=== PATIENT | female | born 1970 | race Caucasian/White ===

== ENCOUNTER → 2019-06-15 08:52 | Outpatient (BNVA) | payer BC, SELFPAY | PROVIDERS: Visit Provider Nurse Practitioner Family | DX: E07.9 Disorder of thyroid, unspecified (principal) | CPT/HCPCS: 84443 ==

== ENCOUNTER → 2019-09-28 14:21 | Outpatient (BNVA) | payer BC, SELFPAY | PROVIDERS: Visit Provider Nurse Practitioner Family | DX: M25.522 Pain in left elbow (principal); R61 Generalized hyperhidrosis | CPT/HCPCS: 73080; 80053; 82607; 83001; 84146; 84443; 85025; 86140 ==

== ENCOUNTER → 2019-10-08 16:12 | Outpatient (BNVA) | payer BC, SELFPAY | PROVIDERS: Visit Provider Nurse Practitioner Family | DX: R73.09 Other abnormal glucose (principal) | CPT/HCPCS: 83036 ==

== ENCOUNTER → 2020-02-17 15:39 | Outpatient (BNVA) | payer BC, SELFPAY | PROVIDERS: Visit Provider Nurse Practitioner Family | DX: E03.9 Hypothyroidism, unspecified (principal); Z20.828 Contact with and (suspected) exposure to other viral communicable diseases | CPT/HCPCS: 84439; 84443; 84481; 87635 ==

== ENCOUNTER → 2020-07-19 14:25 | Outpatient (BNVA) | payer BC, SELFPAY | PROVIDERS: Visit Provider Nurse Practitioner Family | DX: R53.83 Other fatigue (principal); R73.03 Prediabetes | CPT/HCPCS: 80053; 80061; 82306; 82607; 83036; 84439; 84443; 84481; 85025; 85651; 86038; 86140; 86431 ==

== ENCOUNTER → 2021-03-17 11:03 | Outpatient (BNVA) | payer BC, SELFPAY | PROVIDERS: Visit Provider Nurse Practitioner Family | DX: E03.9 Hypothyroidism, unspecified (principal); R73.03 Prediabetes; E55.9 Vitamin D deficiency, unspecified | CPT/HCPCS: 80053; 80061; 82306; 83036; 84443; 85025 ==

== ENCOUNTER → 2021-05-24 09:18 | Outpatient (BNVA) | payer BC, SELFPAY | PROVIDERS: Visit Provider Podiatrist Foot & Ankle Surgery | DX: M19.072 Primary osteoarthritis, left ankle and foot (principal) | CPT/HCPCS: 73630 ==

== ENCOUNTER → 2022-01-23 08:52 | Outpatient (BNVA) | payer SELFPAY | PROVIDERS: PCP Nurse Practitioner Family; Visit Provider Dermatology | DX: Z01.89 Encounter for other specified special examinations (principal) ==

== ENCOUNTER → 2022-04-18 13:37 | Outpatient (BNVA) | payer BC, SELFPAY | PROVIDERS: PCP Nurse Practitioner Family; Visit Provider Nurse Practitioner Family | DX: R73.03 Prediabetes (principal); E03.9 Hypothyroidism, unspecified; E55.9 Vitamin D deficiency, unspecified | CPT/HCPCS: 80053; 80061; 82306; 83036; 84443; 85025 ==

== ENCOUNTER → 2022-10-09 09:58 | Outpatient (BNVA) | payer BC, SELFPAY | PROVIDERS: PCP Nurse Practitioner Family; Visit Provider Nurse Practitioner Family | DX: E03.9 Hypothyroidism, unspecified (principal) | CPT/HCPCS: 84439; 84443 ==

== ENCOUNTER → 2022-10-12 10:17 | Outpatient (BNVA) | payer BC, SELFPAY | PROVIDERS: PCP Nurse Practitioner Family; Visit Provider Nurse Practitioner Family | DX: J40 Bronchitis, not specified as acute or chronic (principal) | CPT/HCPCS: 71046 ==

== ENCOUNTER 2022-10-19 06:51 | Outpatient (CLI) | payer BC, SELFPAY ==
[2022-10-19] MEDS: iohexol 350 mg/mL 500 mL Btl (per mL) IV (07:18)
--- NOTE | 2022-10-19 07:30 | CT_ITS ---
WS: [id number] CT chest w con* [id number] HISTORY: R91.1 - Solitary pulmonary nodule TECHNIQUE: Axial imaging performed through the thorax. Coronal and sagittal reformats are submitted. All CT scans at [facility] use at least one of these dose optimization techniques: automated exposure control; mA and/or kV adjustment per patient size (includes targeted exams where dose is mat ched to clinical indication); or iterative reconstruction. CONTRAST: Omnipaque 350; 100 mL IV. DLP: 237.69 mGy.cm COMPARISON: Chest radiograph 10/12/2022 Lungs and central airway: Nodules seen on the recent chest radiograph corresponds to an incompletely calcified nodule at the LEFT lung base measuring 10 mm. Consistent with a benign granuloma. No suspic ious mass or nodule. Thin linear atelectasis in the LEFT lower lobe. Pleura: Normal. No pleural effusion. Heart and pericardium: Normal size heart with no pericardial effusion. Mediastinum and bob: No mediastinum or hilar adenopathy. Vessels: Normal size aortic and pulmonary artery. No coronary artery calcifications. Chest wall and lower neck: Mildly enlarged nodular thyroid gland. Thyroid gland extends substernal. Upper abdomen: Pancreatic duct is top normal size at 3 mm. The entire pancreatic head is not included . No adrenal mass. Osseous structures: No destructive process. CT/CT chest w con* [id number] IMPRESSION: 1. Benign granuloma LEFT lower lobe. No suspicious mass or pulmonary nodule. 2. Pancreatic duct is mildly prominent for a patient of this age. The entire p ancreatic head and uncinate process are not included. Suggest additional follow -up of the pancreas. Recommend pancreatic MRI with and without contrast to excl ude neoplasm. 3. Mildly enlarged, substernal heterogeneous thyroid.
== END 2022-10-19 06:52 | disposition home or self-care (01) ==
PROVIDERS: PCP Nurse Practitioner Family; Visit Provider Nurse Practitioner Family
DX: R91.1 Solitary pulmonary nodule (principal); J84.10 Pulmonary fibrosis, unspecified; E04.9 Nontoxic goiter, unspecified
CPT/HCPCS: 71260; Q9967

== ENCOUNTER 2022-11-06 06:56 | Outpatient (CLI) | payer BC, SELFPAY ==
--- NOTE | 2022-11-06 07:15 | MR_ITS ---
WS: [id number] MRI OF THE ABDOMEN WITHOUT AND WITH GADOLINIUM ENHANCEMENT INDICATION: Dilated pancreatic duct COMPARISON: CT chest October 19, 2022 TECHNIQUE: Coronal single shot, axial single shot, axial T2 fat sat, and phase imaging, dynamic 3-D p ost gadolinium imaging, coronal 3-D T1 imaging with fat sat, axial 3-D 5 imaging with fat sat. FINDINGS: No evidence of pancreatic mass or lesion. Minimal prominence of the pancreatic duct. Normal common bile duct. Common bile duct measures 6 mm at the pancreatic head. Normal portal vein and sple fam vein. Normal spleen. Mild diffuse fatty infiltration liver. Mild hepatomegaly. Normal gallbladder. No cholelithiasis. No evidence of choledocholithiasis. Tiny 8 mm hepatic cyst LEF T hepatic lobe. Tiny adenoma LEFT adrenal gland measuring 9 mm. RIGHT renal cyst measuring 15 mm. No hydronephrosis i n either kidney. Normal spleen. Normal GE junction. MR/MR abdomen wo/w con* [id number] IMPRESSION: 1. No evidence of pancreatic head mass or lesion. 2. Normal common bile duct measuring 6 mm. 3. No cholelithiasis. 4. Mild hepatomegaly. Slight diffuse fatty infiltration liver. 5. Incidental simple RIGHT renal cyst measuring 15 mm. 6. Tiny 9 mm LEFT adrenal adenoma. 7. No other suspicious findings.
[2022-11-06] MEDS: gadobenate dimeglumine 20 mL vial IV (11:42)
== END 2022-11-06 06:57 | disposition home or self-care (01) ==
PROVIDERS: PCP Nurse Practitioner Family; Visit Provider Nurse Practitioner Family
DX: R16.0 Hepatomegaly, not elsewhere classified (principal); D35.02 Benign neoplasm of left adrenal gland; N28.1 Cyst of kidney, acquired
CPT/HCPCS: 74183; A9577

== ENCOUNTER → 2023-01-04 11:54 | Outpatient (BNVA) | payer BC, SELFPAY | PROVIDERS: PCP Nurse Practitioner Family; Visit Provider Nurse Practitioner | DX: M25.571 Pain in right ankle and joints of right foot (principal); S82.61XA Displaced fracture of lateral malleolus of right fibula, initial encounter for closed fracture; X58.XXXA Exposure to other specified factors, initial encounter | CPT/HCPCS: 73610 ==

== ENCOUNTER → 2023-02-11 16:13 | Outpatient (BNVA) | payer BC, SELFPAY | PROVIDERS: PCP Nurse Practitioner Family; Visit Provider Family Medicine | DX: R30.0 Dysuria (principal); R39.9 Unspecified symptoms and signs involving the genitourinary system | CPT/HCPCS: 81003 ==

== ENCOUNTER → 2023-07-03 11:30 | Outpatient (BNVA) | payer BC, SELFPAY | PROVIDERS: PCP Nurse Practitioner Family; Visit Provider Nurse Practitioner Family | DX: R73.03 Prediabetes; E03.9 Hypothyroidism, unspecified; E55.9 Vitamin D deficiency, unspecified | CPT/HCPCS: 80053; 80061; 82306; 82607; 83036; 84439; 84443; 85025 ==

== ENCOUNTER 2023-07-18 10:18 | Outpatient (CLI) | payer BC, SELFPAY ==
--- NOTE | 2023-07-18 10:22 | US_ITS ---
WS: [id number] BILATERAL 3D TOMOSYNTHESIS DIGITAL DIAGNOSTIC MAMMOGRAPHY WITH CAD CLINICAL INFORMATION: N63.0 - Unspecified lump in unspecified breast HISTORY: RIGHT breast mass COMPARISON: 2017 TECHNIQUE: Bilateral CC, MLO, and ML views. FINDINGS: Scattered fibroglandular densities bilaterally. Deep to the palpable marker, near the 6 o'clock posit ion mid to posterior depth, is an ovoid spiculated breast mass with a few associated heterogeneous ca lcifications. This measures approximately 2.1 x 2.1 cm suspicious for neoplasm. Ultrasound is pending . Surrounding irregular parenchyma suspicious for parenchymal invasion. Vascular calcifications. LEFT breast is unremarkable and unchanged. ULTRASOUND BREAST RIGHT TECHNIQUE: Ultrasound right breast focused area of concern. CLINICAL INFORMATION: N63.0 - Unspecified lump in unspecified breast FINDINGS: Ultrasound RIGHT breast in the area of concern 6 o'clock position 2 cm from the nipple. There is a de nse hypoechoic shadowing irregular mass suspicious for neoplasm with irregular spiculated margins ivette picious for surrounding parenchymal invasion. Irregular mass measures 2.4 x 2.2 x 2.2 cm. Recommend f urther evaluation with ultrasound-guided biopsy.. No lymphadenopathy in the RIGHT axilla. IMPRESSION: US/US breast RT limited* [id number] BI-RADS: 5-Highly Suggestive of Malignancy FOLLOW UP: US Guided Biopsy Recommended Notified ODALIS Beebe at 07/18/2023 12:05 PM.
--- NOTE | 2023-07-18 10:30 | MM_ITS ---
WS: [id number] BILATERAL 3D TOMOSYNTHESIS DIGITAL DIAGNOSTIC MAMMOGRAPHY WITH CAD CLINICAL INFORMATION: N63.0 - Unspecified lump in unspecified breast HISTORY: RIGHT breast mass COMPARISON: 2017 TECHNIQUE: Bilateral CC, MLO, and ML views. FINDINGS: Scattered fibroglandular densities bilaterally. Deep to the palpable marker, near the 6 o'clock posit ion mid to posterior depth, is an ovoid spiculated breast mass with a few associated heterogeneous ca lcifications. This measures approximately 2.1 x 2.1 cm suspicious for neoplasm. Ultrasound is pending . Surrounding irregular parenchyma suspicious for parenchymal invasion. Vascular calcifications. LEFT breast is unremarkable and unchanged. ULTRASOUND BREAST RIGHT TECHNIQUE: Ultrasound right breast focused area of concern. CLINICAL INFORMATION: N63.0 - Unspecified lump in unspecified breast FINDINGS: Ultrasound RIGHT breast in the area of concern 6 o'clock position 2 cm from the nipple. There is a de nse hypoechoic shadowing irregular mass suspicious for neoplasm with irregular spiculated margins ivette picious for surrounding parenchymal invasion. Irregular mass measures 2.4 x 2.2 x 2.2 cm. Recommend f david evaluation with ultrasound-guided biopsy.. No lymphadenopathy in the RIGHT axilla. IMPRESSION: MM/[place] [id number] BI-RADS: 5-Highly Suggestive of Malignancy FOLLOW UP: US Guided Biopsy Recommended Notified ODALIS Beebe at 07/18/2023 12:05 PM.
== END 2023-07-18 10:19 | disposition home or self-care (01) ==
LOC: RAD 10:18
PROVIDERS: PCP Nurse Practitioner Family; Visit Provider Nurse Practitioner Family
DX: N63.15 Unspecified lump in the right breast, overlapping quadrants (principal)
CPT/HCPCS: 76642; 77062; G0279

== ENCOUNTER 2023-07-24 10:11 | Outpatient (CLI) | payer BC, SELFPAY ==
--- NOTE | 2023-07-24 11:45 | US_ITS ---
WS: [id number] ULTRASOUND-GUIDED RIGHT BREAST BIOPSY CLINICAL INFORMATION: R92.8 - Other abnormal and inconclusive findings on diagn... FINDINGS: The procedure including risks, benefits, and complications were discussed with the patient who agreed to proceed. Using sterile technique patient was prepped and draped in the usual sterile fashion. Aft er 1% lidocaine utilizing real-time ultrasound guidance 6 14-gauge cores were obtained of the RIGHT b reast lesion at the 6 o'clock position 2 cm from the nipple. No immediate complications. Patient defe rred biopsy clip. 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 Maximum tumor focus 1.3 cm. Microcalcifications visualized. Breast prognostic profile is pending. Please see pathology report for results. IMPRESSION: 1. Uncomplicated ultrasound-guided RIGHT breast biopsy. 2. The pathology demonstrates invasive ductal carcinoma. 3. Breast cancer prognostic profile pending. See pathology report for final results US/[place] [id number] BI-RADS: 6-Known Biopsy-Proven Malignancy FOLLOW UP: Surgical Biopsy Recommended Recommend Breast surgery consultation.
[2023-07-29 14:42] LABS: Breast Profile ER,PR,HER2,Ki-6 See Report
== END 2023-07-24 10:12 | disposition home or self-care (01) ==
LOC: RAD 10:12
PROVIDERS: PCP Nurse Practitioner Family; Visit Provider Nurse Practitioner Family
DX: C50.811 Malignant neoplasm of overlapping sites of right female breast (principal)
CPT/HCPCS: 19083; 88305; 88361; 88374

== ENCOUNTER 2023-08-06 07:44 | Oncology outpatient (recurring) (ONCR) | payer BC, SELFPAY ==
[2023-08-06 09:12] LABS: Basophils % 0.4 %; Eosinophils % 1.4 %; Hematocrit 42.6 % (36-47); Lymphocytes # 0.9 10^3/uL (0.8-4.8); Lymphocytes % 33.3 %; Mean Corpuscular Hemoglobin 31.5 pg (27-33); Mean Corpuscular Volume 92.6 fl (85-98); Mean Platelet Volume 9.4 fL (7.4-10.4); Monocytes # 0.3 10^3/uL (0.2-0.9); Monocytes % 10.9 %; Neutrophils # 1.49 10^3/uL (1.8-7.7); Nucleated Red Blood Cells % 0 %; Platelet Count 291 10^3/cmm (157-399); Red Cell Distribution Width 11.7 % (12.1-15.1); White Blood Count 2.76 10^3/uL (3.29-11.43)
[2023-08-06 10:15] LABS: Alanine Aminotransferase 37 U/L (0-33); Albumin Level 4.6 g/dL (3.5-5.2); Alkaline Phosphatase 78 U/L (35-105); Anion Gap 18.3 (5-19); Aspartate Amino Transferase 27 U/L (0-32); Blood Urea Nitrogen 12 mg/dL (6-20); Calcium 9.6 mg/dL (8.5-10.5); Carbon Dioxide 26 mmol/L (22-29); Chloride 101 mmol/L (98-107); Creatinine Clr Calc Pharmacy 94.5388; Globulin 3.2 g/dL (1.3-4.6); Glomerular Filtration Rate 88.6 mL/min (90-130); Glucose 100 mg/dL (65-115); Osmolality Calculated 292 mOsm/kg (285-295); Potassium 4.3 mmol/L (3.5-5.1); Sodium 141 mmol/L (136-145); Total Bilirubin 0.4 mg/dL (0.15-1.2); Total Protein 7.8 g/dL (6.6-8.7)
[2023-08-06 10:25] LABS: Hepatitis A Antibody IgM Non-Reactive (Nonreactive); Hepatitis B Core AB, Total Non-Reactive (Nonreactive); Hepatitis B Surface AB < 3.5 (11.5-1000); Hepatitis B Surface Antigen Non-Reactive (Nonreactive); Hepatitis C Virus Antibody Non-Reactive (Nonreactive)
[2023-08-08 16:58] LABS: LAB Peripheral Smear Sent for Review
== END 2023-08-11 23:59 | disposition home or self-care (01) ==
PROVIDERS: PCP Nurse Practitioner Family; Visit Provider Internal Medicine
DX: C50.911 Malignant neoplasm of unspecified site of right female breast (principal); Z53.9 Procedure and treatment not carried out, unspecified reason
CPT/HCPCS: 36415; 80053; 80503; 85025; 86705; 86706; 86709; 86803; 87340

== ENCOUNTER 2023-08-20 08:38 | Day surgery (SDC) | payer BC, SELFPAY ==
[2023-08-20] VITALS (12 sets, daily range): BP systolic 106–143; BP diastolic 71–87; PULSE 58–87; RESP 12–21; TEMP 36.2–36.6; O2SAT 94–98; BMI 29.7
--- NOTE | 2023-08-20 08:48 | XRR_ITS ---
PROCEDURE INFORMATION: Exam: XR Chest Exam date and time: 08/20/2023 10:40 AM Age: 52 years old Clinical indication: Device placement; Other: Mediport placement; Prior surgery; Surgery date: Post-operative (0-2 days); Additional info: Postop mediport placement TECHNIQUE: Imaging protocol: Radiologic exam of the chest. Views: 1 view. COMPARISON: CT chest w con* [id number] 10/19/2022 7:25 AM FINDINGS: Tubes, catheters and devices: Port-A-Cath overlying left chest wall with catheter tip projecting over the expected region of the right atrium. Lungs: No focal lung consolidation. Pleural spaces: No pleural effusion. No pneumothorax. Heart/Mediastinum: Unremarkable. No cardiomegaly. Bones/joints: No acute bony abnormality. XR/XR chest 1V portable [id number] IMPRESSION: 1. No focal lung consolidation. 2. Port-A-Cath overlying left chest wall with catheter tip projecting over the expected region of the right atrium.
--- NOTE | 2023-08-20 08:48 | SC_ITS ---
WS: [id number] C-ARM RADIOGRAPHS CHEST; 2 IMAGES HISTORY: Mediport placement COMPARISON: None available. Intraoperative imaging during Mediport placement. Tip of the Mediport is not visualized due to the te chnique. This will be better evaluated on follow-up radiograph. IMPRESSION: Intraoperative imaging during Mediport placement the LEFT subclavian vein. Tip of the Mediport is not included.
[2023-08-20] MEDS: sodium chloride 0.9% 1,000 ML 30 ML IV (09:09)
--- NOTE | 2023-08-20 09:54 | W.PM.OPSUD ---
Surgery/Procedure H&P Update DATE OF PROCEDURE: August 20, 2023 DATE H&P PERFORMED: 08/12/23 H&P UPDATE INFORMATION: I have reviewed H&P completed within last 30 days, I have examined patient prior to procedure and No changes to prior documentation PLANNED PROCEDURE: Operation Date: 08/20/23 10:55 Proposed Procedures p Portacath Placement(Not Applicable) - Cody Barger DO
--- NOTE | 2023-08-20 10:35 | ANES.PREANE2 ---
Pre-Anesthetic Assessment Height/Weight: Height 1.6 m Weight 76.204 kg Temp Pulse Resp BP Pulse Ox O2 Del Method 97.8 F 65 17 136/81 97 Room Air 08/20/23 08:59 08/20/23 08:59 08/20/23 08:59 08/20/23 08:59 08/20/23 08:59 08/20/23 09:00 Operation Date: 08/20/23 10:55 Proposed Procedures p Portacath Placement(Not Applicable) - Cody Barger DO Familial anesthetic complications: none Was Beta Sean taken within 24 hours: N/A Was Clonidine taken within 24 hours: N/A Last intake: Intake Last Liquid Date 08/19/23 Last Liquid Time 19:00 Last Solid Date 08/19/23 Last Solid Time 19:00 Social No alcohol and No tobacco Exam alert, oriented x 3, clear to auscultation bilaterally and regular rate & rhythm Airway Submandibular: within normal limits Cervical ROM: within normal limits Mallampati: Class II Dentition: full Metabolic Thyroid Disease Anesthetic Plan ASA status: 2 Anesthesia: MAC Medications/Allergies Home Medications Medication Instructions Recorded Confirmed Last Taken Type valacyclovir 1 gram tablet 2,000 mg (2 x 1 gram) PO BID PRN 06/06/23 08/19/23 Unknown Rx (Valtrex) cold sores 1 day #4 tabs levothyroxine 25 mcg tablet 25 mcg PO DAILY #90 tabs 07/07/23 08/20/23 08/20/23 Rx prochlorperazine maleate 10 mg 10 mg PO Q4H PRN Mild Nausea #30 08/06/23 08/19/23 Unknown Rx tablet (Compazine) tabs zolpidem 5 mg tablet (Ambien) 5 mg PO .qhs #30 tabs 08/06/23 08/19/23 08/18/23 Rx carboplatin 10 mg/mL intravenous 450 mg (45 mL) IV DAILY 6 doses 08/09/23 08/19/23 Unknown Rx solution acetaminophen 325 mg tablet 325 mg PO QID PRN Pain 08/19/23 08/19/23 08/12/23 History docetaxel 20 mg/mL (1 mL) 135 mg IV DAILY 08/19/23 08/19/23 Unknown History intravenous solution Allergies Allergy/AdvReac Type Severity Reaction Status Date / Time No Known Allergies Allergy Verified 08/19/23 14:43 Current Medications Generic Name Dose Route Start Last Admin Trade Name Maria G PRN Reason Stop Dose Admin Sodium Chloride 1,000 mls @ 30 mls/hr 08/20/23 09:00 08/20/23 09:09 Sodium Chloride 0.9% IV 08/21/23 08:59 30 mls/hr .Q24H OLEG Administration PFSH Anesthesia Medical History Prediabetes Hypothyroid Surgical History H/O: hysterectomy Family History Father Aneurysm AAA Social History Smoking and tobacco/nicotine status: former use of tobacco/nicotine Quit status (tobacco/nicotine): has quit using Year quit tobacco: 2014 Former quit date comment: smoked 25 yrs; vaped x 5 years recently quit Second hand smoke exposure: No Alcohol intake: never Substance/Drug Use: never Caregiver/support person: Yes (spouse) Lives independently: Yes Household members: spouse Housing: House Marital status: service: No Current occupational status: employed Current gender identity: Female Special willam needs: No Agree to transfusion: Yes Data Anesthesia Cardiac Studies: No Data to Display
[2023-08-20] MEDS: ceFAZolin 2,000 MG in sodium chloride 0.9% (plus) 50 ML 100 MG IV (10:52)
[2023-08-20] MEDS: lidocaine-epi 1% PF 1:200,000 30 mL SDV INJECTION (11:02)
[2023-08-20] MEDS: heparin, porcine 1,000 unit/mL INJ 10 mL 10000 UNIT IRRIGATION ×2 (11:14→12:30)
--- NOTE | 2023-08-20 11:24 | PM.OP ---
Operative Report Date of procedure: August 20, 2023 Pre-op diagnosis: Breast cancer Post-op diagnosis: same Procedure done: Mediport placement Implants: PowerPort Surgeon: Cody Barger DO Anesthesia: MAC and Local Estimated blood loss (mL): 5 Complications: None apparent Brief History: This very pleasant 52-year-old female who was diagnosed with breast cancer. Oncology requested Mediport placement for chemotherapy. The risks and benefits were explained and documented. Procedure: They put another order I will do right now things the patient was taken to the operating room and placed supine on the operating room table. All bony prominences were padded. She was given IV sedation and monitored throughout the case by the anesthesia personnel. SCDs were placed and turned on. The arms were tucked to the side. Patient received Ancef 2 g preoperatively IV. The bilateral chest wall was prepped and draped in usual sterile fashion using chlorhexidine base prep. Sterile drapes were applied. We did procedure pause prior to beginning. An 18 gauge needle was placed in the left subclavian vein. Dark, nonpulsatile blood was aspirated. A guidewire was placed through the needle centrally toward the atrial/vena caval junction. Fluoroscopy visualized good placement. The needle was removed and the guidewire was clipped to the drape with a hemostat. Further local anesthetic was infiltrated in the soft tissues of the left chest wall and a #15 blade was used to make a horizontal skin incision. A subcutaneous Mediport pocket was created using Bovie cautery, dissecting down through the skin and subcutaneous tissues. Meticulous hemostasis was achieved. The Mediport was sutured in position using 3-0 vicryl suture x2 stitches. A #15 blade was used to make a small skin yobani around the guidewire insertion area. The Mediport tubing was tunneled through the subcutaneous tissues up to the needle insertion location. A dilator with a peel-away sheath was placed over the guidewire and placed centrally. After measuring the Mediport tubing was cut to length so that the tip would end at the atrial/vena caval junction. The inner cannula and the guidewire were removed, leaving the dilator sheath in place. The Mediport was flushed. The tip of the catheter was inserted through the peel-away sheath and the peel-away sheath removed in the standard fashion. The Mediport was accessed with a straight Freeman needle and dark, nonpulsatile blood was aspirated and flushed using heparinized saline to hep-lock the Mediport. Final fluoroscopy visualization showed no kink in the catheter and the tip of the Mediport tubing near the atrial/vena caval junction. No obvious pneumothorax. Both skin incisions were thoroughly irrigated and suctioned dry. Meticulous hemostasis noted. The dermis was approximated with 3-0 Vicryl in an interrupted fashion. Skin was closed with Dermabond. Patient was awakened from anesthesia and transferred via her cart to the recovery room in stable condition. All needle, sponge, and instrument counts were correct per the operating personnel x2 counts.
--- NOTE | 2023-08-20 11:51 | PC.NURSE ---
Returned to OR
--- NOTE | 2023-08-20 11:52 | PC.NURSE ---
Dr. Barger reviewed CXR art time of xray
--- NOTE | 2023-08-20 12:48 | XRR_ITS ---
PROCEDURE INFORMATION: Exam: XR Chest Exam date and time: 08/20/2023 11:51 AM Age: 52 years old Clinical indication: Device placement; Other: Mediport revision; Additional info: Postop mediport revision TECHNIQUE: Imaging protocol: Radiologic exam of the chest. Views: 1 view. COMPARISON: CR XR chest 1V portable [id number] 08/20/2023 10:40 AM FINDINGS: Tubes, catheters and devices: Redemonstration of a left-sided Port-A-Cath tip now projects over the expected region of the superior vena cava. Lungs: No focal lung consolidation. Pleural spaces: No pleural effusion. No pneumothorax. Heart/Mediastinum: Unremarkable. No cardiomegaly. Bones/joints: No acute bony abnormality. XR/XR chest 1V portable [id number] IMPRESSION: Redemonstration of a left-sided Port-A-Cath tip now projects over the expected region of the superior vena cava.
--- NOTE | 2023-08-20 13:01 | PC.NURSE ---
CXR reviewed by Dr. Barger. updated on patient c/o some discomfort on inspiration. States it is sore.
[2023-08-20] MEDS: HYDROcodone-acetaminophen 7.5-325 mg Tablet 1 TAB PO (13:25)
--- NOTE | 2023-08-20 14:59 | ANE.PACU2 ---
Inpatient post-anesthesia follow up: Airway intact: Yes Vital signs: Temperature 97.5 F Pulse Rate 66 Respiratory Rate 17 Blood Pressure 143/79 Pulse Oximetry 98 Oxygen Delivery Me thod Room Air Oxygen Flow Rate Fraction of Inspir ed Oxygen Hydration adequate: Yes Nausea and vomiting: No Pain level: 2 Mental status: Baseline
== END 2023-08-20 13:37 | disposition home or self-care (01) ==
PROVIDERS: PCP Nurse Practitioner Family; Visit Provider Surgery
PROC: (CPT 36561; principal; 2023-08-20 10:45)
DX: C50.911 Malignant neoplasm of unspecified site of right female breast (principal); R73.03 Prediabetes; E03.9 Hypothyroidism, unspecified; Z87.891 Personal history of nicotine dependence
CPT/HCPCS: 36561; 71045; 77001; C1788; J0690; J1644; J2250; J2704; J3010; J7030

== ENCOUNTER 2023-08-26 08:59 | Outpatient (CLI) | payer BC, SELFPAY ==
--- NOTE | 2023-08-26 10:00 | CT_ITS ---
WS: [id number] CT CHEST, ABDOMEN, AND PELVIS TECHNIQUE: Contrast-enhanced CT of the chest, abdomen, and pelvis with coronal and sagittal reformatt ed images. CLINICAL INFORMATION: initaial staging COMPARISON: CT chest 10/19/2022 DLP: 855.[address] scans at [facility] use at least one of these dose optimization techniques: automated e xposure control; mA and/or kV adjustment per patient size (includes targeted exams where dose is matc hed to clinical indication); or iterative reconstruction. CT CHEST: Spiculated large heterogeneous mass in the RIGHT breast measuring 2.8 x 2.5 cm corresponding to the r ecently biopsied lesion. Suspicious enhancing lymph node in the RIGHT axilla measuring 11 mm suspicio us for metastatic disease. Both lungs are well aerated. No acute pulmonary infiltrates. No focal pneumonia or pleural fluid. Alexander cified granuloma LEFT lower lobe. Subsegmental atelectasis in the lung bases. Heterogeneous enlarged multinodular thyroid likely due to thyroid goiter with a small amount of substernal extension. This c an be followed up with ultrasound thyroid. No mediastinal or hilar lymphadenopathy. Normal caliber th oracic aorta. Normal thoracic spine. CT ABDOMEN AND PELVIS: Diffuse fatty infiltration of the liver. Normal gallbladder. Normal portal vein and splenic vein. Mil d prominence of the pancreatic duct is unchanged since the prior MRI. Stable LEFT adrenal adenoma. No rmal GE junction. Normal spleen. Celiac and SMA are patent. Normal caliber abdominal aorta. Sigmoid d iverticulosis. No evidence of acute diverticulitis. Tiny fat-containing umbilical hernia. Normal renal parenchymal enhancement. No hydronephrosis. No per iaortic or pelvic lymphadenopathy. No inguinal lymphadenopathy. Normal lumbar spine. Prior hysterectomy. IMPRESSION: 1. No evidence of metastatic disease in the chest abdomen or pelvis. 2. Prior hysterectomy. 3. Spiculated RIGHT breast lesion corresponding to the recently biopsied neoplasm. 4. Suspicious enhancing lymph node in the RIGHT axilla suspicious for lymph node metastasis. This ca n be further evaluated with ultrasound RIGHT axilla and biopsy.
[2023-08-26] MEDS: iohexol 350 mg/mL 500 mL Btl (per mL) PO (10:12)
== END 2023-08-26 09:00 | disposition home or self-care (01) ==
LOC: RAD 09:00
PROVIDERS: PCP Nurse Practitioner Family; Visit Provider Internal Medicine
DX: C50.911 Malignant neoplasm of unspecified site of right female breast (principal)
CPT/HCPCS: 71260; 74177; Q9967

== ENCOUNTER 2023-09-11 09:43 | Outpatient (CLI) | payer BC, SELFPAY ==
--- NOTE | 2023-09-11 09:56 | USCV_ITS ---
August Age: 53 Gender: F : 1970 Exam Date: 09/11/2023 10:12 Ordering Phys: Radha Saucedo MD Technologist: CT Exam Location: [facility] [place]: chemo BP: 121 / 85 HR: 70 Rhythm: Sinus Technical Quality: Adequate MEASUREMENTS (Male / Female) Normal Values 2D ECHO LVOT Diameter 2.0 cm LV Ejection Fraction MOD 2C 66.9 % LV Ejection Fraction 2C AL 67.9 % LA Diameter 3.2 cm RA Systolic Volume 4C AL 19.3 ml RA Systolic Volume 4C MOD 19.0 ml LA Sys Volume AL 35.3 cm cubed LA Sys Volume Index AL 18.7 cm cubed/m squared Aorta at Sinotubular Diameter 2.9 cm IVC Diameter 1.5 cm M-MODE LA Ao Ratio MM 1.5 AV Cusp Separation MM 1.6 cm DOPPLER AV Peak Velocity 116.0 cm/s LVOT Peak Velocity 89.0 cm/s AV Area Cont Eq vti 2.7 cm squared AV Area Cont Eq pk 2.5 cm squared MV Peak Velocity 79.0 cm/s MV Area PHT 3.2 cm squared Mitral E to A Ratio 0.9 TV Peak Velocity 102.0 cm/s TR Peak Velocity 104.0 cm/s TR Peak Gradient 4.3 mmHg TV Peak E Velocity 75.0 cm/s Right Atrial Pressure 3.0 mmHg Pulmonary Artery Systolic Pressu 7.3 mmHg PV Peak Velocity 82.0 cm/s FINDINGS Left Ventricle Normal left ventricular size and systolic function, EF 68%. No gross wall motion abnormalities.Grade I/IV diastolic dysfunction (abnormal relaxation filling pattern), normal to mildly elevated filling pressures. Right Ventricle The right ventricle is normal in size and function. Right Atrium The right atrium is normal in size. Left Atrium The left atrium is normal in size. Mitral Valve No gross abnormalities noted Aortic Valve No gross abnormalities noted Tricuspid Valve Mild tricuspid valve regurgitation. Possibly normal resting pulmonary artery peak systolic pressure. Pulmonic Valve No gross abnormalities noted Pericardium Normal pericardium without effusion. Aorta Normal ascending aorta dimension. IVC Normal inferior vena cava. CONCLUSIONS Normal left ventricular size and systolic function, EF 68%. No gross wall motion abnormalities.Grade I/IV diastolic dysfunction (abnormal relaxation filling pattern), normal to mildly elevated filling pressures. Mild tricuspid valve regurgitation. Possibly normal resting pulmonary artery peak systolic pressure. Normal cardiac chamber sizes. No intracardiac masses No pericardial effusion. No similar previous studies are available for comparison Dr Yvonne England MD [facility] (Electronically Signed) Final Date: 11 Sep 2023 21:53 S
--- NOTE | 2023-09-11 14:45 | US_ITS ---
WS: [id number] ULTRASOUND GUIDED BIOPSY RIGHT AXILLARY LYMPH NODE. HISTORY: infiltrating ductal carcinoma of right breast, abnormal lymph node seen on CT. Procedure, risks, and complications are explained to the patient. Consent was obtained. Skin is clean sed with ChloraPrep and anesthetized with 1% buffered lidocaine. Core biopsies performed with an 18-gauge achieve needle. Multiple biopsies were performed and placed in formalin. No complications were encountered. Patient refused biopsy clip. US/US bx lymph breast/ax [id number] IMPRESSION: 1. Uncomplicated biopsy of an abnormal lymph node in the RIGHT axilla. 2. No biopsy clip placed in the lymph node at the request of the patient. Pathology: Findings consistent with metastatic breast carcinoma. Please review the entire report from pathology. Breast cancer prognostic profile will be perf ormed and submitted separately on this lymph node sampled. Recommendation: Follow-up with oncology.
[2023-09-17 13:10] LABS: Breast Profile ER,PR,HER2,Ki-6 See Report
== END 2023-09-11 09:44 | disposition home or self-care (01) ==
LOC: RAD 09:44
PROVIDERS: PCP Nurse Practitioner Family; Visit Provider Internal Medicine Hematology & Oncology
DX: C50.911 Malignant neoplasm of unspecified site of right female breast (principal)
CPT/HCPCS: 38505; 76942; 88305; 88361; 88374; 93306

== ENCOUNTER 2023-10-07 09:42 | Emergency (ER) | payer BC, SELFPAY ==
[2023-10-07 10:13] VITALS: BP 106/78; PULSE 104; RESP 18; TEMP 36.7; O2SAT 98
--- NOTE | 2023-10-07 10:20 | ED_ITS ---
HPI - Abdominal Pain 2 General: Chief Complaint: Abdominal Pain Stated Complaint: abd pain Time Seen by Provider: 10/07/23 10:19 Source: patient Mode of arrival: ambulatory Limitations: no limitations History of Present Illness: Patient is a 53-year-old female who presents to ED today along with her for multiple complaints that she feels might be related to her recent chemotherapy. Patient has been diagnosed with an invasive ductal carcinoma and started chemotherapy last Saturday with TCHP (Docetaxel/CARBOplatin + Pertuz + Trastuz [Phesgo]). She states about 2 days following the treatment she began feeling ill and complains of diffuse abdominal pain feeling like the inside of her abdomen is pulsating . She has had nausea, vomiting, diarrhea. She is also complaining of some chest heaviness that she feels might be secondary to acid reflux. She has had no appetite. No fevers. Complains of body aches/joint pains. MD elicited complaint: abdominal pain Pertinent past history: other (breast CA) Severity: severe Radiation: none Migration to: no migration Exacerbating factors: eating Relieving factors: nothing Context: other (recent chemotherapy treatment ) Associated Symptoms: Reports diarrhea, nausea and vomiting; Denies chills, dysuria, fever(s), hematochezia, hematemesis, melena and syncope Related Data: Patient : No Review of Systems 2 Const: Reports: body aches, fatigue and malaise; Denies: fever(s) or chills Eyes: Denies: change in vision, blurry vision, photophobia, floaters or seeing flashes ENMT: Denies: throat pain, odynophagia, nasal discharge, nasal congestion or sinus pain Card: Reports: chest pain; Denies: palpitations, irregular heart rhythm, edema, swelling of feet/ankles, lightheadedness, syncope, pre-syncope, dyspnea on exertion, orthopnea, leg pain with exertion or acrocyanosis Resp: Denies: dyspnea, productive cough, non-productive cough, wheezing, pain on inspiration, hemoptysis or chest congestion GI: Reports: abdominal pain, nausea, vomiting and diarrhea; Denies: hematemesis, hematochezia or melena : Denies: flank pain, difficulty voiding, dysuria, urinary frequency, urinary urgency or urinary hesitancy Musc: Reports: joint pain (diffuse); Denies: neck pain, back pain, extremity pain or extremity swelling Skin/Breast: Denies: rash Neuro: Denies: headache(s), numbness in extremities, weakness in extremities, sensory changes or dizziness PFSH ED 2 PFSH: Medical History Prediabetes Hypothyroid Surgical History H/O: hysterectomy Family History Father Aneurysm AAA Social History Smoking and tobacco/nicotine status: never used tobacco/nicotine Quit status (tobacco/nicotine): has quit using Year quit tobacco: 2014 Former quit date comment: smoked 25 yrs; vaped x 5 years recently quit Second hand smoke exposure: No Alcohol intake: never Substance/Drug Use: never Caregiver/support person: Yes (spouse) Lives independently: Yes Household members: spouse Housing: House Marital status: service: No Current occupational status: employed Current gender identity: Female Special willam needs: No Agree to transfusion: Yes Physical Exam 2 Const: COMMON NORMALS: no acute distress, average body habitus, patient oriented x3, no limitations, healthy appearing, alert and well nourished G ENERAL APPEARANCE: cooperative ORIENTATION/CONSCIOUSNESS: Yes awake, Yes oriented to person, Yes oriented to place and Yes oriented to time HENMT: COMMON NORMALS: normocephalic and atraumatic HEAD & SCALP: normal to inspection, normocephalic and atraumatic MOUTH: Normal oral and palatal mucosa present and lip normal THROAT: posterior oropharynx normal Eye: COMMON NORMALS: no scleral icterus GENERAL EYE: appearance normal, both eyes and all related structures Neck/C-Spine: COMMON NORMALS: full ROM, no lymphadenopathy, supple and no meningeal signs Chest: COMMONS NORMALS: normal inspection of the chest Resp: COMMON NORMALS: normal respiratory effort and clear to auscultation bilaterally AUSCULTATION: clear to auscultation bilaterally Cardio: COMMON NORMALS: regular rate and regular rhythm RATE: regular rate RHYTHM: regular rhythm GI: COMMON NORMALS: Normal to inspection, nondistended, normoactive bowel sounds present, Soft to palpation, No hepatosplenomegaly present and no masses INSPECTION: Yes normal to inspection AUSCULTATION: Yes normoactive bowel sounds PALPATION: Yes Soft to palpation, Yes Tenderness to palpation present (GI) (diffusely), No Guarding due to palpation present (GI), No Rigid due to palpation and Yes No hepatosplenomegaly present : COMMON NORMALS: Yes no CVA tenderness BLADDER/KIDNEY EXAM: Yes no CVA tenderness Back/Pelvis: COMMON NORMALS: no CVA tenderness and thoracic and lumbar spine normal to inspection Extremity: COMMON NORMALS: normal to inspection GENERAL: Yes normal exam except as noted Neuro: GIRISH COMA SCALE: document GCS findings Girish coma scale eye opening: Spontaneous Girish coma scale verbal response: Orientated Ione coma scale motor response: Obey commands Ione coma scale total score: 15 C OMMON NORMALS: patient oriented x3, moves all extremities, no focal motor deficits and no sensory deficits noted SENSORIUM/ORIENTATION: Yes alert, Yes oriented to person, Yes oriented to place and Yes oriented to time MENINGEAL SIGNS: Yes no meningeal signs Skin: COMMON NORMALS: no rashes or lesions noted GENERAL SKIN EXAM: no rashes or lesions noted Course 2 Consultations: Consultation #1: Dr. Duarte-recommends blood culture, respiratory panel, Zarxio, and discharge with Levaquin Vital Signs: Vital signs: Vital Signs Temperature 98.1 F 10/07/23 10:13 Pulse Rate 87 10/07/23 12:37 Respiratory Rate 18 10/07/23 10:13 Blood Pressure 123/82 10/07/23 12:37 Pulse Oximetry 97 10/07/23 12:37 Oxygen Delivery Me thod Room Air 10/07/23 12:37 MDM - Abdominal Pain Medical Decision Making Patient is a nice 53-year-old female here for complaints of nausea, vomiting, diarrhea, abdominal pain, joint pains following her first chemotherapy approximately 6 days ago. Patient's vital signs are stable. Her CBC revealing thrombocytopenia and severe neutropenia at 0.82. Chemistry overall is unremarkable. Her UA is unremarkable. CXR is normal. CT scan showing no acute findings. She is not febrile. Spoke to my attending physician Dr. Pulido who recommends hospitalist consult. I did speak to Dr. Duarte who recommended adding a blood culture, respiratory panel, one-time dose of Zarxio, and placing patient on Levaquin 750 mg x 7 days. Did not feel she required hospitalization. Recommend she follow-up with her oncology team this week. Return to ED precautions given. Will give her some pain medications to help with her abdominal discomfort if needed. Lab Data 10/07/23 11:07 10/07/23 11:07 Labs/Radiology: Radiology Impressions Abdomen/Pelvis CT 10/07/23 10:28 IMPRESSION: No acute findings. ADDENDUM: 10/07/23 1138 A 6 mm low-attenuation lesion in the left hepatic lobe is unchanged from prior study. Chest X-Ray 10/07/23 10:28 IMPRESSION: No acute findings. Laboratory Results WBC 3.36 10^3/uL (3.29-11.43) 10/07/23 11:07 RBC 4.50 10^6/uL (3.85-5.65) 10/07/23 11:07 Hgb 14.20 g/dL (11.27-16.99) 10/07/23 11:07 Hct 41.7 % (36-47) 10/07/23 11:07 MCV 92.7 fl (85-98) 10/07/23 11:07 MCH 31.6 pg (27-33) 10/07/23 11:07 MCHC 34.1 g/dL (30-55) 10/07/23 11:07 RDW 12.1 % (12.1-15.1) 10/07/23 11:07 Plt Count 133 10^3/cmm (157-399) L 10/07/23 11:07 MPV 11.1 fL (7.4-10.4) H 10/07/23 11:07 Neut % (Auto) 24.4 % 10/07/23 11:07 Lymph % (Auto) 49.1 % 10/07/23 11:07 [place] % (Auto) 22.9 % 10/07/23 11:07 Eos % (Auto) 1.2 % 10/07/23 11:07 Baso % (Auto) 1.5 % 10/07/23 11:07 Neut # (Auto) 0.82 10^3/uL (1.8-7.7) L* 10/07/23 11:07 Lymph # (Auto) 1.7 10^3/uL (0.8-4.8) 10/07/23 11:07 [place] # (Auto) 0.8 10^3/uL (0.2-0.9) 10/07/23 11:07 Eos # (Auto) 0.0 10^3/uL (0.0-0.8) 10/07/23 11:07 Baso # (Auto) 0.1 10^3/uL (0.0-0.1) 10/07/23 11:07 Nucleated RBC % (auto) 0 % 10/07/23 11:07 Nucleated RBCs # 0.0 /100WBC 10/07/23 11:07 Sodium 135 mmol/L (136-145) L 10/07/23 11:07 Potassium 4.2 mmol/L (3.5-5.1) 10/07/23 11:07 Chloride 98 mmol/L (98-107) 10/07/23 11:07 Carbon Dioxide 24 mmol/L (22-29) 10/07/23 11:07 Anion Gap 17.2 (5-19) 10/07/23 11:07 BUN 10 mg/dL (6-20) 10/07/23 11:07 Creatinine 0.6 mg/dL (0.5-0.9) 10/07/23 11:07 GFR Calculation 105.4 mL/min (90-130) 10/07/23 11:07 Glucose 114 mg/dL (65-115) 10/07/23 11:07 Calculated Osmolality 280 mOsm/kg (285-295) L 10/07/23 11:07 Calcium 8.6 mg/dL (8.5-10.5) 10/07/23 11:07 Total Bilirubin 0.5 mg/dL (0.15-1.2) 10/07/23 11:07 AST 25 U/L (0-32) 10/07/23 11:07 ALT 48 U/L (0-33) H 10/07/23 11:07 Alkaline Phosphatase 93 U/L (35-105) 10/07/23 11:07 Troponin T Baseline < 6 ng/L (0-10) 10/07/23 11:07 Total Protein 7.2 g/dL (6.6-8.7) 10/07/23 11:07 Albumin 4.2 g/dL (3.5-5.2) 10/07/23 11:07 Globulin 3.0 g/dL (1.3-4.6) 10/07/23 11:07 Lipase 21 U/L (13-60) 10/07/23 11:07 Urine Color Yellow (Yellow) 10/07/23 12:00 Urine Appearance Clear (CLEAR) 10/07/23 12:00 Urine pH 8 (5-7) H 10/07/23 12:00 Ur Specific [place] 1.005 (1.005-1.030) 10/07/23 12:00 Urine Protein Trace (Negative) 10/07/23 12:00 Urine Glucose (UA) Norm (Normal) 10/07/23 12:00 Urine Ketones Negative (Negative) 10/07/23 12:00 Urine Blood Neg (Negative) 10/07/23 12:00 Urine Nitrate Negative (Negative) 10/07/23 12:00 Urine Bilirubin Neg (Negative) 10/07/23 12:00 Prot Sulfosalicylic Acd Positive (Negative) 10/07/23 12:00 Urine Urobilinogen Norm mg/dL (Negative) 10/07/23 12:00 Ur Leukocyte Esterase Negative (Negative) 10/07/23 12:00 Urine RBC None /hpf (0-2) 10/07/23 12:00 Urine WBC Rare /hpf (0-5) 10/07/23 12:00 Ur Squamous Epith Cells 0-4 /hpf (0-5) H 10/07/23 12:00 Amorphous Sediment Not Reportable 10/07/23 12:00 Urine Bacteria Trace /hpf (NONE) 10/07/23 12:00 All radiology interpretation(s) finalized by discharge Discharge Plan Discharge Patient Disposition: Home Clinical Impression: Chemotherapy-induced neutropenia, Chemotherapy-induced thrombocytopenia Condition: Stable Prescriptions: New levofloxacin 750 mg tablet 750 mg PO DAILY 7 Days Qty: 7 0RF hydrocodone-acetaminophen 5-325 mg tablet 1 tab PO Q6H PRN (Reason: pain) Qty: 14 0RF No Action Compazine 10 mg tablet 10 mg PO Q4H PRN (Reason: Mild Nausea) Qty: 30 3RF levothyroxine 25 mcg tablet 25 mcg PO DAILY Qty: 90 1RF carboplatin 10 mg/mL solution 450 mg IV DAILY Rx Instructions: Take on day 1 of a 21 day cycle, for 6 cycles. AUC 6 ondansetron HCl 4 mg tablet 4 mg PO QID PRN (Reason: Nausea) Phesgo 1,200 mg-600mg- 30,000 unit/15mL solution 15 ml SUBCUT DIRECTED Ambien 5 mg tablet 5 mg PO BEDTIME acetaminophen 325 mg Tablet 325 mg PO QID PRN (Reason: Pain) Hold Instructions: Resume on 08/22/23. docetaxel 20 mg/mL (1 mL) solution 135 mg IV DAILY Rx Instructions: take on day one of a 21 day cycle. For 6 cycles. Discharge Orders: Discharge ED (Routine); Ordered 10/07/23 Ordered By: Latasha Napoles Referrals: Dana Goel FNP [Primary Care Provider] - Patient Instructions: Neutropenia (ED), Chemo Induced Nausea and Vomiting (ED), Thrombocytopenia Activity Restrictions/Additional Instructions: As we discussed your neutrophil count here was very low. We are placing you on prophylactic antibiotics at this time. You need to quarantine at home and avoid other individuals to keep yourself from getting sick. As we discussed I would like you to follow-up with oncology this week for re-evaluation. You may use the pain medications given to you as needed for your abdominal pain. Please take with a stool softener to avoid constipation. You need to return to the emergency department for any documented fevers of 100.4 or greater. You may also return to the emergency department for worsening or uncontrollable pain, intractable vomiting or diarrhea, generally feeling worse or unwell, or any other concerns you may have. I hope you begin to feel better soon. Coding Level of Care Code ED Network Security Engineer for Sandi Najera
--- NOTE | 2023-10-07 10:22 | ECG_ITS ---
[facility] Test Date: 2023-10-07 Pat Name: Brenda Rico Department: Room: Gender: Female Manufacturing Analyst: : 1970 Requested By: Latasha Napoles Order Number: [id number] Mell MD: Yvonen England M.D. Measurements Intervals [place] Rate: 84 P: 68 NV: 143 QRS: 17 QRSD: 72 T: 48 QT: 353 QTc: 419 Interpretive Statements SINUS RHYTHM POSSIBLE LEFT ATRIAL ENLARGEMENT [-0.1mV P-WAVE IN V1/V2] INTERPRETATION BASED ON A DEFAULT AGE OF 40 YEARS No previous ECG available for comparison Electronically Signed On 10-07-2023 17:29:00 CDT by Yvonne England M.D. [email or web address]
--- NOTE | 2023-10-07 10:28 | XRR_ITS ---
PROCEDURE INFORMATION: Exam: XR Chest Exam date and time: 10/07/2023 10:31 AM Age: 53 years old Clinical indication: Pain; Chest pressure; Prior surgery; Surgery date: 1-6 months; Surgery type: Port; Additional info: Chest pain TECHNIQUE: Imaging protocol: Radiologic exam of the chest. Views: 1 view. COMPARISON: CT chest abdpel w/*[id number] 08/26/2023 10:22 AM FINDINGS: Tubes, catheters and devices: A left chest port terminates in the mid SVC. Lungs: A couple calcified granulomas noted in the left lung. No consolidation. Pleural spaces: Unremarkable. No pleural effusion. No pneumothorax. Heart/Mediastinum: Unremarkable. No cardiomegaly. Bones/joints: Unremarkable. XR/XR chest 1V portable [id number] IMPRESSION: No acute findings.
--- NOTE | 2023-10-07 10:28 | CTR_ITS ---
PROCEDURE INFORMATION: Exam: CT Abdomen And Pelvis With Contrast Exam date and time: 10/07/2023 11:15 AM Age: 53 years old Clinical indication: Abdominal pain; Epigastric; Prior surgery; Surgery date: 6+ months; Surgery type: Hyst, port; Patient HX: Breast cancer; Additional info: Abdominal pain, no appetite, vomiting, diarrhea, recent chemotherapy treatment TECHNIQUE: Imaging protocol: Computed tomography of the abdomen and pelvis with contrast. Radiation optimization: All CT scans at this facility use at least one of these dose optimization techniques: automated exposure control; mA and/or kV adjustment per patient size (includes targeted exams where dose is matched to clinical indication); or iterative reconstruction. Contrast material: OMNI 350; Contrast volume: 100 ml; Contrast route: INTRAVENOUS (IV); COMPARISON: CT chest abdpel w/*[id number] 08/26/2023 10:22 AM RADIATION DOSE METRICS: Total DLP (mGy-cm): 588.49 FINDINGS: Liver: Normal. No mass. Gallbladder and bile ducts: Normal. No calcified stones. No ductal dilation. Pancreas: Normal. No ductal dilation. Spleen: Normal. No splenomegaly. Adrenal glands: Normal. No mass. Kidneys and ureters: Normal. No hydronephrosis. Stomach and bowel: Unremarkable. No obstruction. No mucosal thickening. Appendix: No evidence of appendicitis. Intraperitoneal space: Unremarkable. No free air. No significant fluid collection. Vasculature: Unremarkable. No abdominal aortic aneurysm. Lymph nodes: Unremarkable. No enlarged lymph nodes. Urinary bladder: Unremarkable as visualized. Reproductive: Hysterectomy. Bones/joints: No acute fracture. Soft tissues: Right breast mass noted measuring 2.[address]/CT abdomen pelvis w con* [id number] IMPRESSION: No acute findings.
[2023-10-07] MEDS: lidocaine 2% viscous 15 ML, aluminum-mag hydrox-simethicon 30 ML, sucralfate oral liq 1 GM PO (11:09)
[2023-10-07] MEDS: iohexol 350 mg/mL 500 mL Btl (per mL) IV (11:23)
[2023-10-07 11:50] LABS: Troponin(5th) Baseline < 6 ng/L (0-10)
[2023-10-07 11:52] LABS: Alanine Aminotransferase 48 U/L (0-33); Albumin Level 4.2 g/dL (3.5-5.2); Alkaline Phosphatase 93 U/L (35-105); Blood Urea Nitrogen 10 mg/dL (6-20); Calcium 8.6 mg/dL (8.5-10.5); Carbon Dioxide 24 mmol/L (22-29); Chloride 98 mmol/L (98-107); Creatinine Clr Calc Pharmacy 106.8458; Glomerular Filtration Rate 105.4 mL/min (90-130); Glucose 114 mg/dL (65-115); Lipase 21 U/L (13-60); Osmolality Calculated 280 mOsm/kg (285-295); Sodium 135 mmol/L (136-145); Total Bilirubin 0.5 mg/dL (0.15-1.2); Total Protein 7.2 g/dL (6.6-8.7)
[2023-10-07 11:53] LABS: Anion Gap 17.2 (5-19); Aspartate Amino Transferase 25 U/L (0-32); Potassium 4.2 mmol/L (3.5-5.1)
[2023-10-07 12:09] LABS: Basophils # 0.1 10^3/uL (0.0-0.1); Basophils % 1.5 %; Eosinophils % 1.2 %; Hematocrit 41.7 % (36-47); Lymphocytes # 1.7 10^3/uL (0.8-4.8); Lymphocytes % 49.1 %; Mean Corpuscular HGB Conc 34.1 g/dL (30-55); Mean Corpuscular Hemoglobin 31.6 pg (27-33); Mean Corpuscular Volume 92.7 fl (85-98); Mean Platelet Volume 11.1 fL (7.4-10.4); Monocytes # 0.8 10^3/uL (0.2-0.9); Monocytes % 22.9 %; Neutrophils % 24.4 %; Nucleated Red Blood Cells % 0 %; Platelet Count 133 10^3/cmm (157-399); Red Cell Distribution Width 12.1 % (12.1-15.1); White Blood Count 3.36 10^3/uL (3.29-11.43)
[2023-10-07 12:16] LABS: Neutrophils # 0.82 10^3/uL (1.8-7.7)
[2023-10-07 12:18] LABS: Protein Urine Trace (Negative); Specific Gravity, Urine 1.005 (1.005-1.030); Urine Appearance Clear (CLEAR); Urine Color Yellow (Yellow); pH Urine 8 (5-7)
[2023-10-07 12:19] LABS: Add Urine Culture? No; Add Urine Microscopic? YES; Bacteria Urine TRACE /hpf; Bilirubin Urine Neg (Negative); Blood Urine Neg (Negative); Glucose Urine UA Norm (Normal); Ketones Urine Negative (Negative); Leukocyte Esterase Urine Negative (Negative); Nitrate Urine Negative (Negative); Squamous Epithelial Cell Urine 0-4 /hpf (0-5); Sulfosalicylic Acid Urine Positive (Negative); Urobilinogen Urine Norm (Negative); WBC Urine RARE /hpf (0-5)
[2023-10-07 12:37] VITALS: BP 123/82; PULSE 87; O2SAT 97
[2023-10-07] MEDS: acetaminophen 1,000 MG/100 ML PIGGYBACK 400 MG IV (12:48)
--- NOTE | 2023-10-07 13:08 | DCPLANNER ---
message sent to oncology for er f/u
[2023-10-07] MEDS: filgrastim-sndz 300 mcg/0.5 mL Syringe SUBCUT (13:49)
[2023-10-07 13:59] VITALS: BP 123/82; PULSE 87; RESP 18; TEMP 36.7; O2SAT 97
[2023-10-07 14:56] LABS: Adenovirus Not Detected (NOT DETECT); Chlamydia Pneumoniae Not Detected (NOT DETECT); Coronavirus 229E,HKU1,NL63,OC4 Not Detected (NOT DETECT); Human Metapneumovirus Not Detected (NOT DETECT); Human Rhinovirus/Enterovirus Not Detected (NOT DETECT); Influenza A Not Detected (NOT DETECT); Influenza A H1 Not Detected (NOT DETECT); Influenza A H1-2009 Not Detected (NOT DETECT); Influenza A H3 Not Detected (NOT DETECT); Influenza B Not Detected (NOT DETECT); Mycoplasma Pneumoniae Not Detected (NOT DETECT); Parainfluenza Virus Type 1 Not Detected (NOT DETECT); Parainfluenza Virus Type 2 Not Detected (NOT DETECT); Parainfluenza Virus Type 3 Not Detected (NOT DETECT); Parainfluenza Virus Type 4 Not Detected (NOT DETECT); Respiratory Syncytial Virus A Not Detected (NOT DETECT); Respiratory Syncytial Virus B Not Detected (NOT DETECT); SARS-COV-2 Not Detected (NOT DETECT)
== END 2023-10-07 14:03 | disposition home or self-care (01) ==
PROVIDERS: Student in an Organized Health Care Education/Training Program; Emergency Provider Physician Assistant; PCP Nurse Practitioner Family
DX: D70.1 Agranulocytosis secondary to cancer chemotherapy (principal); D69.59 Other secondary thrombocytopenia; T45.1X5A Adverse effect of antineoplastic and immunosuppressive drugs, initial encounter; Z87.891 Personal history of nicotine dependence; C50.919 Malignant neoplasm of unspecified site of unspecified female breast
CPT/HCPCS: 36415; 71045; 74177; 80053; 81001; 83690; 84484; 85025; 87040; 87486; 87581; 87633; 93005; 96365; 96372; 99285; J0131; Q5101; Q9967

== ENCOUNTER 2023-10-08 13:30 | Oncology outpatient (recurring) (ONCR) | payer BC, SELFPAY ==
[2023-10-01 08:20] LABS: Basophils % 0.1 %; Hematocrit 39.7 % (36-47); Lymphocytes # 0.8 10^3/uL (0.8-4.8); Lymphocytes % 8.8 %; Mean Corpuscular HGB Conc 34.3 g/dL (30-55); Mean Corpuscular Hemoglobin 31.7 pg (27-33); Mean Corpuscular Volume 92.5 fl (85-98); Mean Platelet Volume 9.5 fL (7.4-10.4); Monocytes # 0.2 10^3/uL (0.2-0.9); Monocytes % 2.8 %; Neutrophils # 7.46 10^3/uL (1.8-7.7); Neutrophils % 87.8 %; Nucleated Red Blood Cells % 0 %; Platelet Count 321 10^3/cmm (157-399); Red Blood Count 4.29 10^6/uL (3.85-5.65); Red Cell Distribution Width 12.4 % (12.1-15.1)
[2023-10-01 08:43] LABS: Alanine Aminotransferase 79 U/L (0-33); Albumin Level 4.8 g/dL (3.5-5.2); Alkaline Phosphatase 89 U/L (35-105); Anion Gap 16.3 (5-19); Aspartate Amino Transferase 39 U/L (0-32); Blood Urea Nitrogen 15 mg/dL (6-20); Carbon Dioxide 24 mmol/L (22-29); Chloride 104 mmol/L (98-107); Globulin 3.2 g/dL (1.3-4.6); Glomerular Filtration Rate 88.2 mL/min (90-130); Glucose 146 mg/dL (65-115); Osmolality Calculated 293 mOsm/kg (285-295); Potassium 4.3 mmol/L (3.5-5.1); Sodium 140 mmol/L (136-145); Total Bilirubin 0.3 mg/dL (0.15-1.2)
[2023-10-01 10:21] VITALS: BMI 30.1
[2023-10-01] MEDS: OLANZapine 5 mg TABLET PO (10:48)
[2023-10-01] MEDS: diphenhydrAMINE 50 mg/mL SDV 1mL 25 MG IVP (10:48)
[2023-10-01] MEDS: sodium chloride 0.9% 250 ML 75 ML IV (10:50)
[2023-10-01] MEDS: palonosetron 0.25 mg/5 mL SDV IVP (10:55)
[2023-10-01] MEDS: famotidine 20 mg/2 mL INJ IVP (10:58)
[2023-10-01] MEDS: fosaprepitant 150 MG in sodium chloride 0.9% 150 ML 300 MG IV (11:29)
[2023-10-01] MEDS: [UNRECOGNIZED DRUG - REMARK] 263.5 MG IV (12:34)
[2023-10-01] MEDS: SODIUM CHLORIDE 0.9% IV (13:44)
[2023-10-01] MEDS: CARBOPLATIN IV (13:44)
[2023-10-01] MEDS: pertuzumab-trastuzumab-hy-zzxf (80 mg-40 mg-2,000 units/ml) 15mL 1200 MG SUBCUT (14:51)
[2023-10-01] MEDS: pegfilgrastim 6 mg/0.6 mL Kit (onpro) SUBCUT (15:26)
[2023-10-01 15:32] VITALS: BP 118/75; PULSE 73; RESP 16; TEMP 36.4; O2SAT 100
[2023-10-02 14:37] LABS: Leukemia Profile (BBPL) See Report
== END 2023-10-11 23:59 | disposition home or self-care (01) ==
PROVIDERS: PCP Nurse Practitioner Family; Visit Provider Internal Medicine
DX: Z53.9 Procedure and treatment not carried out, unspecified reason; Z45.2 Encounter for adjustment and management of vascular access device
CPT/HCPCS: 80053; 85025; 88184; 88185; 96367; 96375; 96377; 96401; 96413; 96417; J1100; J1200; J1453; J2469; J2506; J3490; J7040; J7050; J9045; J9171; J9316

== ENCOUNTER 2023-10-09 10:45 | Outpatient (CLI) | payer BC, SELFPAY ==
[2023-10-08 13:00] LABS: Hematocrit 39.8 % (36-47); Mean Corpuscular HGB Conc 34.2 g/dL (30-55); Mean Corpuscular Hemoglobin 31.3 pg (27-33); Mean Corpuscular Volume 91.5 fl (85-98); Mean Platelet Volume 10.7 fL (7.4-10.4); Platelet Count 155 10^3/cmm (157-399); Red Blood Count 4.35 10^6/uL (3.85-5.65); Red Cell Distribution Width 12.1 % (12.1-15.1); White Blood Count 17.02 10^3/uL (3.29-11.43)
[2023-10-08 13:20] LABS: Alanine Aminotransferase 46 U/L (0-33); Alkaline Phosphatase 108 U/L (35-105); Anion Gap 15.9 (5-19); Aspartate Amino Transferase 28 U/L (0-32); Blood Urea Nitrogen 12 mg/dL (6-20); Carbon Dioxide 28 mmol/L (22-29); Chloride 94 mmol/L (98-107); Globulin 2.9 g/dL (1.3-4.6); Glomerular Filtration Rate 88.2 mL/min (90-130); Glucose 131 mg/dL (65-115); Osmolality Calculated 280 mOsm/kg (285-295); Potassium 3.9 mmol/L (3.5-5.1); Sodium 134 mmol/L (136-145); Total Bilirubin 0.2 mg/dL (0.15-1.2); Total Protein 6.9 g/dL (6.6-8.7)
[2023-10-08 13:54] LABS: Slide Review Slide Review Perform
[2023-10-08 14:00] LABS: Absolute Neutrophil 10.2 10^3/cmm (1.4-6.5); Absolute Segmented Neutrophil 7.8 10/cmm (1.6-7.1); Band Neutrophils Absolute 2.4 10^3/cmm (0.0-1.2); Eosinophils 0 %; Lymphocytes 21 %; Lymphocytes Absolute 3.7 10^3/cmm (1.2-3.4); Platelet Estimate Normal (Normal); Segmented Neutrophils 46 %; Total Cells Counted 100 (0-100)
--- NOTE | 2023-10-09 11:21 | US_ITS ---
WS: [id number] Ultrasound-guided biopsy clip placement RIGHT breast and RIGHT axillary lymph node. HISTORY: Prior biopsy of a RIGHT breast mass and abnormal RIGHT lymph node have been performed. At th at time patient refused biopsy clips. She has returned for biopsy clip placement. Procedure, risks and complications were explained to the patient. The RIGHT breast mass is localized at 6:00. Pathological lymph node in the RIGHT axilla is localized. Skin is cleansed with ChloraPrep a nd anesthetized with lidocaine. Biopsy clips are placed within the central RIGHT breast neoplasm at 6 :00 and also the abnormal RIGHT axillary lymph node. No complications. US/US guide needle placewa [id number] IMPRESSION: Uncomplicated placement of a biopsy clip in the RIGHT breast mass at 6:00. Uncomplicated placement biopsy clip in the abnormal RIGHT axillary lymph node.
--- NOTE | 2023-10-09 11:45 | US_ITS ---
WS: [id number] Ultrasound-guided biopsy clip placement RIGHT breast and RIGHT axillary lymph node. HISTORY: Prior biopsy of a RIGHT breast mass and abnormal RIGHT lymph node have been performed. At th at time patient refused biopsy clips. She has returned for biopsy clip placement. Procedure, risks and complications were explained to the patient. The RIGHT breast mass is localized at 6:00. Pathological lymph node in the RIGHT axilla is localized. Skin is cleansed with ChloraPrep a nd anesthetized with lidocaine. Biopsy clips are placed within the central RIGHT breast neoplasm at 6 :00 and also the abnormal RIGHT axillary lymph node. No complications. US/US guide needle placenh [id number] IMPRESSION: Uncomplicated placement of a biopsy clip in the RIGHT breast mass at 6:00. Uncomplicated placement biopsy clip in the abnormal RIGHT axillary lymph node.
== END 2023-10-09 10:46 | disposition home or self-care (01) ==
PROVIDERS: PCP Nurse Practitioner Family; Visit Provider Nurse Practitioner Family
DX: C50.911 Malignant neoplasm of unspecified site of right female breast (principal)
CPT/HCPCS: 76942; 80053; 85007; 85025

== ENCOUNTER 2023-11-05 14:30 | Oncology outpatient (recurring) (ONCR) | payer BC, SELFPAY ==
[2023-10-15 12:32] LABS: Basophils % 0.3 %; Hematocrit 34.4 % (36-47); Lymphocytes % 15.8 %; Mean Corpuscular HGB Conc 33.1 g/dL (30-55); Mean Corpuscular Hemoglobin 31.1 pg (27-33); Mean Platelet Volume 9.7 fL (7.4-10.4); Monocytes # 0.5 10^3/uL (0.2-0.9); Monocytes % 3.7 %; Neutrophils # 9.75 10^3/uL (1.8-7.7); Nucleated Red Blood Cells % 0 %; Platelet Count 179 10^3/cmm (157-399); Red Blood Count 3.66 10^6/uL (3.85-5.65); Red Cell Distribution Width 13.1 % (12.1-15.1); White Blood Count 12.35 10^3/uL (3.29-11.43)
[2023-10-15 12:46] LABS: Alanine Aminotransferase 154 U/L (0-33); Alkaline Phosphatase 201 U/L (35-105); Anion Gap 15.2 (5-19); Aspartate Amino Transferase 134 U/L (0-32); Blood Urea Nitrogen 8 mg/dL (6-20); Calcium 8.4 mg/dL (8.5-10.5); Carbon Dioxide 23 mmol/L (22-29); Chloride 104 mmol/L (98-107); Globulin 2.9 g/dL (1.3-4.6); Glomerular Filtration Rate 105.4 mL/min (90-130); Glucose 162 mg/dL (65-115); Osmolality Calculated 288 mOsm/kg (285-295); Potassium 4.2 mmol/L (3.5-5.1); Sodium 138 mmol/L (136-145); Total Bilirubin 0.2 mg/dL (0.15-1.2); Total Protein 6.9 g/dL (6.6-8.7)
--- NOTE | 2023-10-15 15:15 | CT_ITS ---
WS: [id number] CT CHEST ANGIOGRAPHY WITH REFORMATS HISTORY: chest pain with breathing; increased HR TECHNIQUE: Contiguous axial images are obtained through the chest during arterial injection of intrav enous contrast. Images are reconstructed to evaluate the pulmonary arteries. MIP imaging also reviewe d. All CT scans at [facility] use at least one of these dose optimization techniques: automat ed exposure control; mA and/or kV adjustment per patient size (includes targeted exams where dose is matched to clinical indication); or iterative reconstruction. CONTRAST: Omnipaque 350; 100 mL IV. DLP: 334.52 mGy COMPARISON: 08/26/2023, 10/19/2022 Adequate opacification of the pulmonary arteries. No pulmonary embolism is identified. Normal size pu lmonary artery and aorta. There is a very small pericardial effusion versus pericardial thickening no RIGHT heart strain. Small mediastinal and hilar lymph nodes do not appear pathologic. LEFT subclavia n central line is identified. There is a calcification in the LEFT lower lobe which has been present on prior studies. What is of c oncern is increasing soft tissue surrounding this calcification. Soft tissue thickening measures up t o 6 mm. This is circumferential encasement of the calcification. Additional thin linear atelectasis i n the lingula and LEFT lower lobe. Patient has a known RIGHT breast neoplasm with RIGHT axillary adenopathy. The RIGHT breast mass is de creasing in size. Central biopsy marker is placed within the area of decreasing size. Clip is also no jared within the central RIGHT axillary lymph node which is previously described as normal. No adrenal mass. Visualized liver is negative. CT/CT angio chest PE protcl [id number] IMPRESSION: 1. No pulmonary embolism. 2. Benign appearing granuloma in the LEFT lower lobe has been present on prior studies. There is now new circumferential soft tissue encasement. I suspect th is is probably a reaction of granulomatous disease. Suspect this is probably in flammatory thickening or infectious. Less likely neoplastic. This will need to be further evaluated in short-term follow-up. Recommend follow-up chest CT in 3 months if PET/CT is not obtained. 3. Patient has a known RIGHT breast mass and a RIGHT axillary lymph node that is been previously biopsied. Biopsy-proven RIGHT breast neoplasm and metastatic disease to the lymph node. 4. No central mediastinal lymph nodes.
[2023-10-22 08:11] LABS: Basophils # 0.1 10^3/uL (0.0-0.1); Basophils % 0.7 %; Eosinophils % 0.3 %; Hematocrit 34.6 % (36-47); Lymphocytes # 1.4 10^3/uL (0.8-4.8); Lymphocytes % 19.2 %; Mean Corpuscular HGB Conc 33.2 g/dL (30-55); Mean Corpuscular Hemoglobin 31.7 pg (27-33); Mean Corpuscular Volume 95.3 fl (85-98); Mean Platelet Volume 8.5 fL (7.4-10.4); Monocytes # 0.5 10^3/uL (0.2-0.9); Neutrophils % 72.4 %; Nucleated Red Blood Cells % 0 %; Platelet Count 464 10^3/cmm (157-399); Red Blood Count 3.63 10^6/uL (3.85-5.65); Red Cell Distribution Width 13.4 % (12.1-15.1); White Blood Count 7.45 10^3/uL (3.29-11.43)
[2023-10-22 08:38] LABS: Alanine Aminotransferase 181 U/L (0-33); Albumin Level 4.1 g/dL (3.5-5.2); Alkaline Phosphatase 122 U/L (35-105); Anion Gap 17.2 (5-19); Aspartate Amino Transferase 120 U/L (0-32); Blood Urea Nitrogen 11 mg/dL (6-20); Calcium 9.2 mg/dL (8.5-10.5); Carbon Dioxide 26 mmol/L (22-29); Chloride 106 mmol/L (98-107); Globulin 3.1 g/dL (1.3-4.6); Glomerular Filtration Rate 130.1 mL/min (90-130); Glucose 179 mg/dL (65-115); Osmolality Calculated 302 mOsm/kg (285-295); Potassium 5.2 mmol/L (3.5-5.1); Sodium 144 mmol/L (136-145); Total Bilirubin 0.2 mg/dL (0.15-1.2); Total Protein 7.2 g/dL (6.6-8.7)
[2023-10-22] MEDS: sodium chloride 0.9% 250 ML 75 ML IV (10:28)
[2023-10-22] MEDS: acetaminophen 325 mg Tablet 650 MG PO (10:30)
[2023-10-22] MEDS: OLANZapine 5 mg TABLET PO (10:30)
[2023-10-22] MEDS: palonosetron 0.25 mg/5 mL SDV IVP (10:31)
[2023-10-22] MEDS: diphenhydrAMINE 50 mg/mL SDV 1mL 25 MG IVP (10:34)
[2023-10-22] MEDS: famotidine 20 mg/2 mL INJ IVP (10:37)
[2023-10-22] MEDS: fosaprepitant 150 MG in sodium chloride 0.9% 150 ML 300 MG IV (10:46)
[2023-10-22] MEDS: pertuzumab-trastuzumab-hy-zzxf (60 mg-60mg-2000 units/mL) 10mL 600 MG SUBCUT (11:54)
[2023-10-22] MEDS: [UNRECOGNIZED DRUG - REMARK] 261 MG IV (11:54)
[2023-10-22] MEDS: CARBOplatin 750 MG in sodium chloride 0.9% 500 ML 650 MG IV (13:10)
[2023-10-22] MEDS: pegfilgrastim 6 mg/0.6 mL Kit (onpro) SUBCUT (14:59)
[2023-10-22 15:03] VITALS: BP 106/69; PULSE 73; RESP 16; O2SAT 93
[2023-10-29 14:57] LABS: Basophils # 0.2 10^3/uL (0.0-0.1); Basophils % 0.8 %; Eosinophils % 0.1 %; Hematocrit 33.6 % (36-47); Lymphocytes # 3.2 10^3/uL (0.8-4.8); Lymphocytes % 18.1 %; Mean Corpuscular HGB Conc 33.9 g/dL (30-55); Mean Corpuscular Volume 94.4 fl (85-98); Mean Platelet Volume 9.4 fL (7.4-10.4); Monocytes # 1.9 10^3/uL (0.2-0.9); Monocytes % 10.5 %; Neutrophils # 11.42 10^3/uL (1.8-7.7); Neutrophils % 64.7 %; Nucleated Red Blood Cells % 0 %; Platelet Count 273 10^3/cmm (157-399); Red Blood Count 3.56 10^6/uL (3.85-5.65); Red Cell Distribution Width 13.7 % (12.1-15.1); White Blood Count 17.65 10^3/uL (3.29-11.43)
[2023-10-29 15:12] LABS: Alanine Aminotransferase 80 U/L (0-33); Albumin Level 4.1 g/dL (3.5-5.2); Alkaline Phosphatase 159 U/L (35-105); Anion Gap 15.9 (5-19); Aspartate Amino Transferase 35 U/L (0-32); Blood Urea Nitrogen 11 mg/dL (6-20); Calcium 9.1 mg/dL (8.5-10.5); Carbon Dioxide 26 mmol/L (22-29); Chloride 98 mmol/L (98-107); Globulin 2.8 g/dL (1.3-4.6); Glomerular Filtration Rate 105.4 mL/min (90-130); Glucose 225 mg/dL (65-115); Osmolality Calculated 288 mOsm/kg (285-295); Potassium 3.9 mmol/L (3.5-5.1); Sodium 136 mmol/L (136-145); Total Bilirubin 0.2 mg/dL (0.15-1.2); Total Protein 6.9 g/dL (6.6-8.7)
[2023-10-29 15:21] LABS: Slide Review Slide Review Perform
[2023-11-05 14:38] LABS: Basophils % 0.4 %; Hematocrit 32.3 % (36-47); Lymphocytes % 12.9 %; Mean Corpuscular HGB Conc 32.8 g/dL (30-55); Mean Corpuscular Hemoglobin 31.5 pg (27-33); Mean Corpuscular Volume 96.1 fl (85-98); Mean Platelet Volume 9.6 fL (7.4-10.4); Monocytes # 0.3 10^3/uL (0.2-0.9); Monocytes % 4.2 %; Neutrophils # 6.31 10^3/uL (1.8-7.7); Neutrophils % 82.1 %; Nucleated Red Blood Cells % 0 %; Platelet Count 143 10^3/cmm (157-399); Red Blood Count 3.36 10^6/uL (3.85-5.65); Red Cell Distribution Width 14.5 % (12.1-15.1); White Blood Count 7.68 10^3/uL (3.29-11.43)
[2023-11-05 14:58] LABS: Alanine Aminotransferase 62 U/L (0-33); Albumin Level 4.2 g/dL (3.5-5.2); Alkaline Phosphatase 154 U/L (35-105); Aspartate Amino Transferase 31 U/L (0-32); Blood Urea Nitrogen 12 mg/dL (6-20); Calcium 9.3 mg/dL (8.5-10.5); Carbon Dioxide 24 mmol/L (22-29); Chloride 103 mmol/L (98-107); Glomerular Filtration Rate 130.1 mL/min (90-130); Glucose 119 mg/dL (65-115); Osmolality Calculated 289 mOsm/kg (285-295); Sodium 139 mmol/L (136-145); Total Bilirubin 0.3 mg/dL (0.15-1.2); Total Protein 7.2 g/dL (6.6-8.7)
== END 2023-11-10 23:59 | disposition home or self-care (01) ==
PROVIDERS: Internal Medicine Medical Oncology; Nurse Practitioner Family; PCP Nurse Practitioner Family; Visit Provider Internal Medicine
DX: C50.919 Malignant neoplasm of unspecified site of unspecified female breast (principal); Z53.9 Procedure and treatment not carried out, unspecified reason
CPT/HCPCS: 36591; 71275; 80053; 85025; 96367; 96375; 96377; 96402; 96413; 96417; J1100; J1200; J1453; J2469; J2506; J3490; J7040; J7050; J9045; J9171; J9316; Q9967

== ENCOUNTER 2023-12-10 15:00 | Oncology outpatient (recurring) (ONCR) | payer BC, SELFPAY ==
[2023-11-12 07:42] LABS: Lymphocytes # 0.7 10^3/uL (0.8-4.8); Lymphocytes % 10.5 %; Mean Corpuscular HGB Conc 33.3 g/dL (30-55); Mean Corpuscular Hemoglobin 32.1 pg (27-33); Mean Corpuscular Volume 96.2 fl (85-98); Mean Platelet Volume 8.8 fL (7.4-10.4); Monocytes # 0.3 10^3/uL (0.2-0.9); Monocytes % 4.1 %; Neutrophils # 5.81 10^3/uL (1.8-7.7); Neutrophils % 85.1 %; Nucleated Red Blood Cells % 0 %; Platelet Count 306 10^3/cmm (157-399); Red Blood Count 3.43 10^6/uL (3.85-5.65); Red Cell Distribution Width 15.8 % (12.1-15.1); White Blood Count 6.83 10^3/uL (3.29-11.43)
[2023-11-12 08:03] LABS: Alanine Aminotransferase 33 U/L (0-33); Albumin Level 4.5 g/dL (3.5-5.2); Alkaline Phosphatase 120 U/L (35-105); Anion Gap 19.3 (5-19); Aspartate Amino Transferase 18 U/L (0-32); Blood Urea Nitrogen 9 mg/dL (6-20); Calcium 9.8 mg/dL (8.5-10.5); Carbon Dioxide 23 mmol/L (22-29); Chloride 103 mmol/L (98-107); Globulin 3.1 g/dL (1.3-4.6); Glomerular Filtration Rate 105.4 mL/min (90-130); Glucose 135 mg/dL (65-115); Osmolality Calculated 293 mOsm/kg (285-295); Potassium 4.3 mmol/L (3.5-5.1); Sodium 141 mmol/L (136-145); Total Bilirubin 0.3 mg/dL (0.15-1.2); Total Protein 7.6 g/dL (6.6-8.7)
[2023-11-12 09:45] VITALS: BP 120/83; PULSE 71; RESP 16; TEMP 36.6; O2SAT 96
[2023-11-12] MEDS: sodium chloride 0.9% 250 ML 75 ML IV (09:50)
[2023-11-12] MEDS: acetaminophen 325 mg Tablet 650 MG PO (09:53)
[2023-11-12] MEDS: palonosetron 0.25 mg/5 mL SDV IVP (09:53)
[2023-11-12] MEDS: OLANZapine 5 mg TABLET PO (09:53)
[2023-11-12] MEDS: famotidine 20 mg/2 mL INJ IVP (09:56)
[2023-11-12] MEDS: dexamethasone 4 mg/mL INJ 5 mL 12 MG IVP (10:00)
[2023-11-12] MEDS: diphenhydrAMINE 50 mg/mL SDV 1mL 25 MG IVP (10:03)
[2023-11-12] MEDS: fosaprepitant 150 MG in sodium chloride 0.9% 150 ML 300 MG IV (10:07)
[2023-11-12] MEDS: pertuzumab-trastuzumab-hy-zzxf (60 mg-60mg-2000 units/mL) 10mL 600 MG SUBCUT (11:01)
[2023-11-12] MEDS: [UNRECOGNIZED DRUG - REMARK] 261 MG IV (11:01)
[2023-11-12] MEDS: CARBOplatin 750 MG in sodium chloride 0.9% 500 ML 575 MG IV (12:19)
[2023-11-12 13:50] VITALS: BP 124/78; PULSE 97; RESP 16; TEMP 35.8; O2SAT 98
[2023-11-13 14:05] VITALS: BP 133/75; PULSE 98; RESP 17; O2SAT 97
[2023-11-13] MEDS: pegfilgrastim-bmez 6 mg/0.6 mL SYR SUBCUT (14:10)
[2023-11-19 14:10] LABS: Alanine Aminotransferase 30 U/L (0-33); Alkaline Phosphatase 114 U/L (35-105); Anion Gap 14.9 (5-19); Aspartate Amino Transferase 15 U/L (0-32); Blood Urea Nitrogen 13 mg/dL (6-20); Calcium 8.8 mg/dL (8.5-10.5); Carbon Dioxide 29 mmol/L (22-29); Chloride 98 mmol/L (98-107); Creatinine Clr Calc Pharmacy 130.2163; Globulin 2.4 g/dL (1.3-4.6); Glomerular Filtration Rate 130.1 mL/min (90-130); Glucose 102 mg/dL (65-115); Osmolality Calculated 286 mOsm/kg (285-295); Potassium 3.9 mmol/L (3.5-5.1); Sodium 138 mmol/L (136-145); Total Bilirubin 0.3 mg/dL (0.15-1.2); Total Protein 6.4 g/dL (6.6-8.7)
[2023-11-19 14:51] LABS: Basophils # 0.1 10^3/uL (0.0-0.1); Basophils % 1.1 %; Eosinophils % 0.2 %; Hematocrit 32.2 % (36-47); Lymphocytes % 46.7 %; Mean Corpuscular HGB Conc 34.2 g/dL (30-55); Mean Corpuscular Hemoglobin 33.3 pg (27-33); Mean Corpuscular Volume 97.6 fl (85-98); Mean Platelet Volume 10.2 fL (7.4-10.4); Monocytes # 0.5 10^3/uL (0.2-0.9); Monocytes % 12.4 %; Neutrophils % 38.9 %; Nucleated Red Blood Cells % 0 %; Platelet Count 106 10^3/cmm (157-399); Red Cell Distribution Width 14.7 % (12.1-15.1); Slide Review Slide Review Perform; White Blood Count 4.37 10^3/uL (3.29-11.43)
[2023-11-19] MEDS: sodium chloride 0.9% 1,000 ML 999 ML IV (15:45)
[2023-11-19 16:31] VITALS: BP 103/60; PULSE 74; RESP 16
[2023-11-26 15:21] LABS: Basophils % 0.7 %; Hematocrit 28.7 % (36-47); Lymphocytes # 1.5 10^3/uL (0.8-4.8); Lymphocytes % 33.8 %; Mean Corpuscular HGB Conc 33.4 g/dL (30-55); Mean Corpuscular Hemoglobin 33.6 pg (27-33); Mean Corpuscular Volume 100.3 fl (85-98); Mean Platelet Volume 9.2 fL (7.4-10.4); Monocytes # 0.3 10^3/uL (0.2-0.9); Monocytes % 6.4 %; Neutrophils # 2.68 10^3/uL (1.8-7.7); Neutrophils % 58.7 %; Nucleated Red Blood Cells % 0 %; Platelet Count 192 10^3/cmm (157-399); Red Blood Count 2.86 10^6/uL (3.85-5.65); Red Cell Distribution Width 16.1 % (12.1-15.1); White Blood Count 4.56 10^3/uL (3.29-11.43)
[2023-11-26 15:37] LABS: Alanine Aminotransferase 121 U/L (0-33); Albumin Level 3.7 g/dL (3.5-5.2); Alkaline Phosphatase 146 U/L (35-105); Anion Gap 15.7 (5-19); Aspartate Amino Transferase 43 U/L (0-32); Blood Urea Nitrogen 7 mg/dL (6-20); Calcium 8.4 mg/dL (8.5-10.5); Carbon Dioxide 27 mmol/L (22-29); Chloride 101 mmol/L (98-107); Creatinine Clr Calc Pharmacy 107.7984; Globulin 2.7 g/dL (1.3-4.6); Glomerular Filtration Rate 105.4 mL/min (90-130); Glucose 119 mg/dL (65-115); Osmolality Calculated 289 mOsm/kg (285-295); Potassium 3.7 mmol/L (3.5-5.1); Sodium 140 mmol/L (136-145); Total Bilirubin 0.2 mg/dL (0.15-1.2); Total Protein 6.4 g/dL (6.6-8.7)
[2023-12-03 07:57] LABS: Basophils % 0.2 %; Hematocrit 33.6 % (36-47); Lymphocytes # 0.9 10^3/uL (0.8-4.8); Lymphocytes % 10.8 %; Mean Corpuscular HGB Conc 32.7 g/dL (30-55); Mean Corpuscular Hemoglobin 33.3 pg (27-33); Mean Corpuscular Volume 101.8 fl (85-98); Mean Platelet Volume 8.8 fL (7.4-10.4); Monocytes # 0.1 10^3/uL (0.2-0.9); Monocytes % 1.7 %; Neutrophils # 6.87 10^3/uL (1.8-7.7); Neutrophils % 85.3 %; Nucleated Red Blood Cells % 0 %; Platelet Count 488 10^3/cmm (157-399); Red Cell Distribution Width 16.8 % (12.1-15.1); White Blood Count 8.06 10^3/uL (3.29-11.43)
[2023-12-03 08:20] LABS: Alanine Aminotransferase 44 U/L (0-33); Albumin Level 4.4 g/dL (3.5-5.2); Alkaline Phosphatase 121 U/L (35-105); Anion Gap 18.2 (5-19); Aspartate Amino Transferase 18 U/L (0-32); Blood Urea Nitrogen 8 mg/dL (6-20); Calcium 9.7 mg/dL (8.5-10.5); Carbon Dioxide 22 mmol/L (22-29); Chloride 100 mmol/L (98-107); Creatinine Clr Calc Pharmacy 107.7984; Globulin 3.1 g/dL (1.3-4.6); Glomerular Filtration Rate 105.4 mL/min (90-130); Glucose 169 mg/dL (65-115); Osmolality Calculated 284 mOsm/kg (285-295); Potassium 4.2 mmol/L (3.5-5.1); Sodium 136 mmol/L (136-145); Total Bilirubin 0.2 mg/dL (0.15-1.2); Total Protein 7.5 g/dL (6.6-8.7)
[2023-12-03] MEDS: OLANZapine 5 mg TABLET PO (10:29)
[2023-12-03] MEDS: sodium chloride 0.9% 250 ML 75 ML IV (10:32)
[2023-12-03] MEDS: dexamethasone 4 mg/mL INJ 12 MG IVP (10:32)
[2023-12-03] MEDS: diphenhydrAMINE 50 mg/mL SDV 1mL 25 MG IVP (10:33)
[2023-12-03] MEDS: famotidine 20 mg/2 mL INJ IVP (10:34)
[2023-12-03] MEDS: palonosetron 0.25 mg/5 mL SDV IVP (10:34)
[2023-12-03] MEDS: fosaprepitant 150 MG in sodium chloride 0.9% 150 ML 300 MG IV (10:47)
[2023-12-03] MEDS: [UNRECOGNIZED DRUG - REMARK] 261 MG IV (11:35)
[2023-12-03] MEDS: CARBOplatin 750 MG in sodium chloride 0.9% 500 ML 575 MG IV (12:51)
[2023-12-03] MEDS: pertuzumab-trastuzumab-hy-zzxf (60 mg-60mg-2000 units/mL) 10mL 600 MG SUBCUT (14:03)
[2023-12-03 14:35] VITALS: BP 119/79; PULSE 67; RESP 17; TEMP 36.2; O2SAT 98
[2023-12-04 14:58] VITALS: BP 124/78; PULSE 71; RESP 16; TEMP 37.1; O2SAT 97
[2023-12-04] MEDS: pegfilgrastim-bmez 6 mg/0.6 mL SYR SUBCUT (15:02)
[2023-12-10 15:18] LABS: Hematocrit 35.6 % (36-47); Mean Corpuscular Hemoglobin 33.5 pg (27-33); Mean Corpuscular Volume 98.6 fl (85-98); Mean Platelet Volume 10.1 fL (7.4-10.4); Platelet Count 274 10^3/cmm (157-399); Red Blood Count 3.61 10^6/uL (3.85-5.65); Red Cell Distribution Width 15.5 % (12.1-15.1); White Blood Count 10.61 10^3/uL (3.29-11.43)
[2023-12-10 15:44] LABS: Alanine Aminotransferase 42 U/L (0-33); Albumin Level 4.3 g/dL (3.5-5.2); Alkaline Phosphatase 130 U/L (35-105); Anion Gap 15.8 (5-19); Aspartate Amino Transferase 23 U/L (0-32); Blood Urea Nitrogen 14 mg/dL (6-20); Calcium 9.2 mg/dL (8.5-10.5); Carbon Dioxide 28 mmol/L (22-29); Chloride 97 mmol/L (98-107); Creatinine Clr Calc Pharmacy 109.0698; Globulin 2.5 g/dL (1.3-4.6); Glomerular Filtration Rate 105.4 mL/min (90-130); Glucose 129 mg/dL (65-115); Osmolality Calculated 286 mOsm/kg (285-295); Potassium 3.8 mmol/L (3.5-5.1); Sodium 137 mmol/L (136-145); Total Bilirubin 0.3 mg/dL (0.15-1.2); Total Protein 6.8 g/dL (6.6-8.7)
[2023-12-10 15:59] LABS: Absolute Segmented Neutrophil 5.8 10/cmm (1.6-7.1); Band Neutrophils Absolute 0.2 10^3/cmm (0.0-1.2); Eosinophils 0 %; Lymphocytes 28 %; Lymphocytes Absolute 4.1 10^3/cmm (1.2-3.4); Monocytes Absolute 0.4 10^3/cmm (0.1-0.6); Platelet Estimate Normal (Normal); Segmented Neutrophils 55 %; Slide Review Slide Review Perform; Total Cells Counted 100 (0-100)
== END 2023-12-11 23:59 | disposition home or self-care (01) ==
PROVIDERS: Internal Medicine; Nurse Practitioner Family; PCP Nurse Practitioner Family; Visit Provider Internal Medicine Medical Oncology
DX: Z53.9 Procedure and treatment not carried out, unspecified reason (principal); C50.919 Malignant neoplasm of unspecified site of unspecified female breast
CPT/HCPCS: 36591; 80053; 85007; 85025; 96360; 96367; 96372; 96375; 96402; 96413; 96417; J1100; J1200; J1453; J2469; J3490; J7030; J7040; J7050; J9045; J9171; J9316; Q5120

== ENCOUNTER 2024-01-07 14:15 | Oncology outpatient (recurring) (ONCR) | payer BC, SELFPAY ==
[2023-12-13] MEDS: sodium chloride 0.9% 1,000 ML 999 ML IV (08:39)
[2023-12-13 08:41] VITALS: BP 116/78; PULSE 88; RESP 18; TEMP 36.7; O2SAT 96
[2023-12-17 15:41] VITALS: BP 109/76; PULSE 94; RESP 18; TEMP 36.7; O2SAT 98
[2023-12-17 16:01] LABS: Basophils % 0.3 %; Hematocrit 29.1 % (36-47); Lymphocytes # 1.8 10^3/uL (0.8-4.8); Lymphocytes % 24.2 %; Mean Corpuscular Hemoglobin 34.7 pg (27-33); Mean Corpuscular Volume 102.1 fl (85-98); Mean Platelet Volume 9.9 fL (7.4-10.4); Monocytes # 0.4 10^3/uL (0.2-0.9); Monocytes % 5.3 %; Neutrophils # 5.22 10^3/uL (1.8-7.7); Neutrophils % 69.5 %; Nucleated Red Blood Cells % 0 %; Platelet Count 136 10^3/cmm (157-399); Red Blood Count 2.85 10^6/uL (3.85-5.65); Red Cell Distribution Width 16.2 % (12.1-15.1); White Blood Count 7.51 10^3/uL (3.29-11.43)
[2023-12-17 16:20] LABS: Alanine Aminotransferase 43 U/L (0-33); Albumin Level 3.8 g/dL (3.5-5.2); Alkaline Phosphatase 123 U/L (35-105); Anion Gap 15.4 (5-19); Aspartate Amino Transferase 26 U/L (0-32); Blood Urea Nitrogen 5 mg/dL (6-20); Calcium 8.4 mg/dL (8.5-10.5); Carbon Dioxide 26 mmol/L (22-29); Chloride 101 mmol/L (98-107); Globulin 2.5 g/dL (1.3-4.6); Glomerular Filtration Rate 130.1 mL/min (90-130); Glucose 136 mg/dL (65-115); Osmolality Calculated 287 mOsm/kg (285-295); Potassium 3.4 mmol/L (3.5-5.1); Sodium 139 mmol/L (136-145); Total Bilirubin 0.2 mg/dL (0.15-1.2); Total Protein 6.3 g/dL (6.6-8.7)
[2023-12-24 08:11] LABS: Basophils % 0.2 %; Lymphocytes # 0.5 10^3/uL (0.8-4.8); Lymphocytes % 8.7 %; Mean Corpuscular HGB Conc 32.9 g/dL (30-55); Mean Corpuscular Hemoglobin 34.5 pg (27-33); Mean Corpuscular Volume 104.7 fl (85-98); Mean Platelet Volume 9.2 fL (7.4-10.4); Monocytes % 0.4 %; Neutrophils # 4.92 10^3/uL (1.8-7.7); Neutrophils % 89.2 %; Nucleated Red Blood Cells % 0 %; Platelet Count 299 10^3/cmm (157-399); Red Blood Count 2.96 10^6/uL (3.85-5.65); Red Cell Distribution Width 16.4 % (12.1-15.1); White Blood Count 5.51 10^3/uL (3.29-11.43)
[2023-12-24 08:33] LABS: Alanine Aminotransferase 37 U/L (0-33); Alkaline Phosphatase 95 U/L (35-105); Anion Gap 18.4 (5-19); Aspartate Amino Transferase 24 U/L (0-32); Blood Urea Nitrogen 8 mg/dL (6-20); Calcium 9.2 mg/dL (8.5-10.5); Carbon Dioxide 22 mmol/L (22-29); Chloride 101 mmol/L (98-107); Creatinine Clr Calc Pharmacy 108.7518; Globulin 2.8 g/dL (1.3-4.6); Glomerular Filtration Rate 105.4 mL/min (90-130); Glucose 239 mg/dL (65-115); Osmolality Calculated 290 mOsm/kg (285-295); Potassium 4.4 mmol/L (3.5-5.1); Sodium 137 mmol/L (136-145); Total Bilirubin 0.2 mg/dL (0.15-1.2); Total Protein 6.8 g/dL (6.6-8.7)
[2023-12-24 09:14] LABS: Slide Review Slide Review Perform
[2023-12-24 09:35] VITALS: BP 110/74; PULSE 75; RESP 16; TEMP 36.5; O2SAT 92
[2023-12-24] MEDS: sodium chloride 0.9% 250 ML 75 ML IV (09:39)
[2023-12-24] MEDS: palonosetron 0.25 mg/5 mL SDV IVP (09:42)
[2023-12-24] MEDS: OLANZapine 5 mg TABLET PO (09:43)
[2023-12-24] MEDS: famotidine 20 mg/2 mL INJ IVP (09:46)
[2023-12-24] MEDS: dexamethasone 4 mg/mL INJ 12 MG IVP (09:48)
[2023-12-24] MEDS: diphenhydrAMINE 50 mg/mL SDV 1mL 25 MG IVP (09:52)
[2023-12-24] MEDS: fosaprepitant 150 MG in sodium chloride 0.9% 150 ML 300 MG IV (10:02)
[2023-12-24] MEDS: [UNRECOGNIZED DRUG - REMARK] 261 MG IV (11:04)
[2023-12-24] MEDS: pertuzumab-trastuzumab-hy-zzxf (60 mg-60mg-2000 units/mL) 10mL 600 MG SUBCUT (11:05)
[2023-12-24] MEDS: CARBOplatin 750 MG in sodium chloride 0.9% 500 ML 575 MG IV (12:48)
[2023-12-24 16:31] VITALS: BP 112/75; PULSE 75; RESP 17; TEMP 37.1; O2SAT 97
[2023-12-25] MEDS: pegfilgrastim-bmez 6 mg/0.6 mL SYR SUBCUT (14:09)
--- NOTE | 2023-12-26 06:30 | USCV_ITS ---
August Age: 53 Gender: F : 1970 Exam Date: 12/26/2023 07:06 Ordering Phys: Milagros Crooks APRN Technologist: ERIKA Exam Location: [facility] – [place] Indication: Mid way through Chemo treatments for Beast Cancer BP: / HR: 76 Rhythm: Sinus Technical Quality: Adequate MEASUREMENTS (Male / Female) Normal Values 2D ECHO LV Diastolic Diameter PLAX 4.6 cm 4.2 - 5.9 / 3.9 - 5.3 cm IVS Diastolic Thickness 1.1 cm 0.6 - 1.0 / 0.6 - 0.9 cm IVS Systolic Thickness 1.4 cm LVPW Diastolic Thickness 0.9 cm 0.6 - 1.0 / 0.6 - 0.9 cm LVPW Systolic Thickness 1.3 cm LVOT Diameter 2.6 cm LV Ejection Fraction 2D Teich 64.0 % LV Ejection Fraction MOD 4C 59.5 % LV Ejection Fraction MOD 2C 49.9 % LV Ejection Fraction 2C AL 35.8 % LA Diameter 3.0 cm RA Systolic Volume 4C AL 14.2 ml RA Systolic Volume 4C MOD 13.5 ml LA Sys Volume AL 32.6 cm cubed LA Sys Volume Index AL 18.0 cm cubed/m squared Aorta at Sinotubular Diameter 2.4 cm M-MODE LA Ao Ratio MM 1.1 AV Cusp Separation MM 1.5 cm DOPPLER AV Peak Velocity 135.0 cm/s LVOT Peak Velocity 108.0 cm/s AV Area Cont Eq vti 3.9 cm squared AV Area Cont Eq pk 4.2 cm squared MV Area PHT 3.5 cm squared Mitral E to A Ratio 1.5 TR Peak Velocity 261.5 cm/s TR Peak Gradient 27.4 mmHg TR Mean Velocity 213.0 cm/s TR Mean Gradient 20.2 mmHg TR Velocity Time Integral 89.6 cm TV Peak E Velocity 72.0 cm/s Right Atrial Pressure 3.0 mmHg Pulmonary Artery Systolic Pressu 30.4 mmHg PV Peak Velocity 88.0 cm/s FINDINGS Left Ventricle Normal left ventricular size, systolic function and wall thickness, with no regional wall motion abnormalities. Estimated ejection fraction 60%. Grade II/IV diastolic dysfunction, moderately elevated filling pressures. Right Ventricle The right ventricle is normal in size and function. Right Atrium The right atrium is normal in size. Left Atrium The left atrium is normal in size. Mitral Valve Structurally normal mitral valve without significant stenosis or prolapse. There is no mitral regurgitation. Aortic Valve Structurally normal aortic valve without significant sclerosis or stenosis. There is no aortic regurgitation. Tricuspid Valve Moderate tricuspid valve regurgitation. Tricuspid valve sclerosis. Pulmonic Valve Structurally normal pulmonic valve without significant stenosis. There is mild pulmonic regurgitation. Pericardium Normal pericardium without effusion. Aorta Normal ascending aorta dimension. IVC The inferior vena cava appears normal. CONCLUSIONS Normal left ventricular size, systolic function and wall thickness, with no regional wall motion abnormalities. Estimated ejection fraction 60%. Grade II/IV diastolic dysfunction, moderately elevated filling pressures. Moderate tricuspid valve regurgitation. Tricuspid valve sclerosis. There is no pericardial effusion. Pulmonary artery systolic pressure is within normal limits. Right atrial pressure is around 10 mm of mercury. Geronimo Minor MD (Electronically Signed) Final Date: 26 December 2023 21:53 S
[2023-12-27] MEDS: sodium chloride 0.9% 1,000 ML 999 ML IV (09:09)
[2023-12-27 09:11] VITALS: BP 99/67; PULSE 91; TEMP 36.3; O2SAT 95
[2023-12-27 10:26] VITALS: BP 106/69; PULSE 66; RESP 16; TEMP 36.4; O2SAT 98
[2023-12-31 11:04] VITALS: BP 117/79; PULSE 117; RESP 18; O2SAT 96
[2023-12-31] MEDS: sodium chloride 0.9% 1,000 ML 999 ML IV (11:20)
[2023-12-31 11:33] LABS: Basophils % 0.2 %; Hematocrit 33.9 % (36-47); Lymphocytes # 1.8 10^3/uL (0.8-4.8); Lymphocytes % 21.5 %; Mean Corpuscular HGB Conc 34.5 g/dL (30-55); Mean Corpuscular Hemoglobin 35.2 pg (27-33); Mean Corpuscular Volume 102.1 fl (85-98); Mean Platelet Volume 10.4 fL (7.4-10.4); Monocytes # 1.6 10^3/uL (0.2-0.9); Neutrophils % 57.8 %; Nucleated Red Blood Cells % 0 %; Platelet Count 144 10^3/cmm (157-399); Red Blood Count 3.32 10^6/uL (3.85-5.65); Red Cell Distribution Width 14.9 % (12.1-15.1); White Blood Count 8.14 10^3/uL (3.29-11.43)
[2023-12-31 11:55] LABS: Alanine Aminotransferase 45 U/L (0-33); Albumin Level 4.1 g/dL (3.5-5.2); Alkaline Phosphatase 129 U/L (35-105); Anion Gap 16.7 (5-19); Aspartate Amino Transferase 24 U/L (0-32); Blood Urea Nitrogen 13 mg/dL (6-20); Calcium 8.9 mg/dL (8.5-10.5); Carbon Dioxide 26 mmol/L (22-29); Chloride 95 mmol/L (98-107); Creatinine Clr Calc Pharmacy 93.2158; Globulin 2.5 g/dL (1.3-4.6); Glomerular Filtration Rate 88.2 mL/min (90-130); Glucose 112 mg/dL (65-115); Osmolality Calculated 279 mOsm/kg (285-295); Potassium 3.7 mmol/L (3.5-5.1); Sodium 134 mmol/L (136-145); Total Bilirubin 0.4 mg/dL (0.15-1.2); Total Protein 6.6 g/dL (6.6-8.7)
[2023-12-31 12:18] LABS: Slide Review Slide Review Perform
[2023-12-31 12:35] VITALS: BP 106/70; PULSE 78; RESP 16; O2SAT 97
[2024-01-03] MEDS: sodium chloride 0.9% 1,000 ML 999 ML IV (10:54)
[2024-01-07 14:22] LABS: Basophils % 0.3 %; Lymphocytes # 1.4 10^3/uL (0.8-4.8); Lymphocytes % 19.9 %; Mean Corpuscular Hemoglobin 34.6 pg (27-33); Mean Corpuscular Volume 104.9 fl (85-98); Monocytes # 0.4 10^3/uL (0.2-0.9); Neutrophils % 73.4 %; Nucleated Red Blood Cells % 0 %; Platelet Count 147 10^3/cmm (157-399); Red Blood Count 2.86 10^6/uL (3.85-5.65); Red Cell Distribution Width 15.1 % (12.1-15.1); White Blood Count 6.95 10^3/uL (3.29-11.43)
[2024-01-07 14:48] LABS: Alanine Aminotransferase 50 U/L (0-33); Albumin Level 3.8 g/dL (3.5-5.2); Alkaline Phosphatase 117 U/L (35-105); Anion Gap 14.4 (5-19); Aspartate Amino Transferase 30 U/L (0-32); Blood Urea Nitrogen 7 mg/dL (6-20); Calcium 8.4 mg/dL (8.5-10.5); Carbon Dioxide 29 mmol/L (22-29); Chloride 99 mmol/L (98-107); Creatinine Clr Calc Pharmacy 93.2158; Globulin 2.4 g/dL (1.3-4.6); Glomerular Filtration Rate 88.2 mL/min (90-130); Glucose 134 mg/dL (65-115); Osmolality Calculated 288 mOsm/kg (285-295); Potassium 3.4 mmol/L (3.5-5.1); Sodium 139 mmol/L (136-145); Total Bilirubin 0.3 mg/dL (0.15-1.2); Total Protein 6.2 g/dL (6.6-8.7)
== END 2024-01-11 23:59 | disposition home or self-care (01) ==
PROVIDERS: Nurse Practitioner Family; PCP Nurse Practitioner Family; Visit Provider Nurse Practitioner Family
DX: C50.911 Malignant neoplasm of unspecified site of right female breast; Z53.9 Procedure and treatment not carried out, unspecified reason; Z79.899 Other long term (current) drug therapy
CPT/HCPCS: 36415; 36591; 80053; 85025; 93306; 96360; 96367; 96372; 96375; 96402; 96413; 96417; J1100; J1200; J1453; J2469; J3490; J7030; J7040; J7050; J9045; J9171; J9316; Q5120

== ENCOUNTER 2024-02-04 07:30 | Oncology outpatient (recurring) (ONCR) | payer BC, SELFPAY ==
[2024-01-14 08:13] LABS: Basophils % 0.1 %; Hematocrit 32.3 % (36-47); Lymphocytes # 0.8 10^3/uL (0.8-4.8); Lymphocytes % 9.7 %; Mean Corpuscular HGB Conc 32.8 g/dL (30-55); Mean Corpuscular Hemoglobin 35.2 pg (27-33); Mean Corpuscular Volume 107.3 fl (85-98); Mean Platelet Volume 9.2 fL (7.4-10.4); Monocytes # 0.1 10^3/uL (0.2-0.9); Monocytes % 0.7 %; Neutrophils # 7.17 10^3/uL (1.8-7.7); Neutrophils % 88.8 %; Nucleated Red Blood Cells % 0 %; Platelet Count 285 10^3/cmm (157-399); Red Blood Count 3.01 10^6/uL (3.85-5.65); Red Cell Distribution Width 15.3 % (12.1-15.1); White Blood Count 8.08 10^3/uL (3.29-11.43)
[2024-01-14 08:33] LABS: Alanine Aminotransferase 21 U/L (0-33); Albumin Level 4.1 g/dL (3.5-5.2); Alkaline Phosphatase 95 U/L (35-105); Anion Gap 19.3 (5-19); Aspartate Amino Transferase 16 U/L (0-32); Blood Urea Nitrogen 9 mg/dL (6-20); Calcium 9.3 mg/dL (8.5-10.5); Carbon Dioxide 22 mmol/L (22-29); Chloride 101 mmol/L (98-107); Globulin 2.9 g/dL (1.3-4.6); Glomerular Filtration Rate 130.1 mL/min (90-130); Glucose 181 mg/dL (65-115); Osmolality Calculated 289 mOsm/kg (285-295); Potassium 4.3 mmol/L (3.5-5.1); Sodium 138 mmol/L (136-145); Total Bilirubin 0.2 mg/dL (0.15-1.2)
[2024-01-14] MEDS: OLANZapine 5 mg TABLET PO (10:14)
[2024-01-14] MEDS: sodium chloride 0.9% 250 ML 75 ML IV (10:14)
[2024-01-14] MEDS: fosaprepitant 150 MG in sodium chloride 0.9% 150 ML 300 MG IV (10:14)
[2024-01-14] MEDS: palonosetron 0.25 mg/5 mL SDV IVP (10:20)
[2024-01-14] MEDS: diphenhydrAMINE 50 mg/mL SDV 1mL 25 MG IVP (10:24)
[2024-01-14] MEDS: famotidine 20 mg/2 mL INJ IVP (10:28)
[2024-01-14] MEDS: dexamethasone 4 mg/mL INJ 12 MG IVP (10:33)
[2024-01-14] MEDS: [UNRECOGNIZED DRUG - REMARK] 258 MG IV (11:20)
[2024-01-14] MEDS: pertuzumab-trastuzumab-hy-zzxf (60 mg-60mg-2000 units/mL) 10mL 600 MG SUBCUT (11:20)
[2024-01-14 14:08] VITALS: BP 112/76; PULSE 97; RESP 18; TEMP 36.4; O2SAT 99
[2024-01-16] MEDS: pegfilgrastim-bmez 6 mg/0.6 mL SYR SUBCUT (08:49)
[2024-01-16 08:52] VITALS: BP 116/77; PULSE 55; RESP 16; TEMP 37.1; O2SAT 98
[2024-01-17] MEDS: sodium chloride 0.9% 1,000 ML 999 ML IV (08:30)
[2024-01-17] MEDS: loperamide 2 mg Capsule 4 MG PO (08:31)
[2024-01-17 10:37] VITALS: BP 110/67; PULSE 70; RESP 18; TEMP 35.9; O2SAT 96
[2024-01-21 14:32] LABS: Basophils # 0.1 10^3/uL (0.0-0.1); Basophils % 0.9 %; Eosinophils % 0.1 %; Hematocrit 32.8 % (36-47); Lymphocytes # 2.3 10^3/uL (0.8-4.8); Lymphocytes % 30.6 %; Mean Corpuscular HGB Conc 33.8 g/dL (30-55); Mean Corpuscular Hemoglobin 35.4 pg (27-33); Mean Corpuscular Volume 104.5 fl (85-98); Mean Platelet Volume 10.1 fL (7.4-10.4); Monocytes # 1.6 10^3/uL (0.2-0.9); Monocytes % 20.3 %; Neutrophils # 3.49 10^3/uL (1.8-7.7); Neutrophils % 45.6 %; Nucleated Red Blood Cells % 0.3 %; Platelet Count 164 10^3/cmm (157-399); Red Blood Count 3.14 10^6/uL (3.85-5.65); Red Cell Distribution Width 14.2 % (12.1-15.1); White Blood Count 7.65 10^3/uL (3.29-11.43)
[2024-01-21] MEDS: sodium chloride 0.9% 1,000 ML 999 ML IV (14:38)
[2024-01-21 14:55] LABS: Alanine Aminotransferase 26 U/L (0-33); Albumin Level 4.2 g/dL (3.5-5.2); Alkaline Phosphatase 123 U/L (35-105); Anion Gap 17.7 (5-19); Aspartate Amino Transferase 18 U/L (0-32); Blood Urea Nitrogen 13 mg/dL (6-20); Calcium 8.5 mg/dL (8.5-10.5); Carbon Dioxide 27 mmol/L (22-29); Chloride 95 mmol/L (98-107); Creatinine Clr Calc Pharmacy 107.1631; Globulin 2.4 g/dL (1.3-4.6); Glomerular Filtration Rate 105.4 mL/min (90-130); Glucose 123 mg/dL (65-115); Osmolality Calculated 283 mOsm/kg (285-295); Potassium 3.7 mmol/L (3.5-5.1); Sodium 136 mmol/L (136-145); Total Bilirubin 0.3 mg/dL (0.15-1.2); Total Protein 6.6 g/dL (6.6-8.7)
[2024-01-21 14:59] LABS: Slide Review Slide Review Perform
[2024-01-21 15:30] VITALS: BP 111/75; PULSE 80; RESP 16; TEMP 36.6; O2SAT 99
[2024-01-24] MEDS: sodium chloride 0.9% 1,000 ML 999 ML IV (08:01)
[2024-01-24 09:12] VITALS: BP 100/66; PULSE 68; RESP 16; TEMP 36.6; O2SAT 98
[2024-01-27 11:37] LABS: Basophils # 0.1 10^3/uL (0.0-0.1); Basophils % 0.5 %; Hematocrit 30.4 % (36-47); Lymphocytes # 1.4 10^3/uL (0.8-4.8); Lymphocytes % 14.7 %; Mean Corpuscular HGB Conc 32.9 g/dL (30-55); Mean Corpuscular Hemoglobin 35.5 pg (27-33); Mean Corpuscular Volume 107.8 fl (85-98); Mean Platelet Volume 10.3 fL (7.4-10.4); Monocytes # 0.6 10^3/uL (0.2-0.9); Monocytes % 5.9 %; Neutrophils # 7.37 10^3/uL (1.8-7.7); Neutrophils % 78.3 %; Nucleated Red Blood Cells % 0 %; Platelet Count 145 10^3/cmm (157-399); Red Blood Count 2.82 10^6/uL (3.85-5.65); Red Cell Distribution Width 14.6 % (12.1-15.1); White Blood Count 9.43 10^3/uL (3.29-11.43)
[2024-02-04 07:46] LABS: Basophils % 0.4 %; Eosinophils % 0.2 %; Hematocrit 32.1 % (36-47); Lymphocytes # 1.3 10^3/uL (0.8-4.8); Lymphocytes % 24.5 %; Mean Corpuscular HGB Conc 32.4 g/dL (30-55); Mean Corpuscular Hemoglobin 34.9 pg (27-33); Mean Corpuscular Volume 107.7 fl (85-98); Mean Platelet Volume 8.9 fL (7.4-10.4); Monocytes # 0.4 10^3/uL (0.2-0.9); Monocytes % 7.8 %; Neutrophils % 66.7 %; Nucleated Red Blood Cells % 0 %; Platelet Count 288 10^3/cmm (157-399); Red Blood Count 2.98 10^6/uL (3.85-5.65); Red Cell Distribution Width 14.3 % (12.1-15.1)
[2024-02-04 08:13] LABS: Alanine Aminotransferase 28 U/L (0-33); Albumin Level 3.9 g/dL (3.5-5.2); Alkaline Phosphatase 86 U/L (35-105); Anion Gap 15.6 (5-19); Aspartate Amino Transferase 23 U/L (0-32); Blood Urea Nitrogen 7 mg/dL (6-20); Calcium 8.9 mg/dL (8.5-10.5); Carbon Dioxide 26 mmol/L (22-29); Chloride 101 mmol/L (98-107); Creatinine Clr Calc Pharmacy 128.9774; Globulin 2.6 g/dL (1.3-4.6); Glomerular Filtration Rate 130.1 mL/min (90-130); Glucose 153 mg/dL (65-115); Osmolality Calculated 289 mOsm/kg (285-295); Potassium 3.6 mmol/L (3.5-5.1); Sodium 139 mmol/L (136-145); Thyroid Stimulating Hormone 1.08 uIU/mL (0.27-4.20); Total Bilirubin 0.2 mg/dL (0.15-1.2); Total Protein 6.5 g/dL (6.6-8.7)
[2024-02-04] MEDS: diphenhydrAMINE 25 mg Capsule PO (09:46)
[2024-02-04] MEDS: acetaminophen 325 mg Tablet 650 MG PO (09:49)
[2024-02-04] MEDS: pertuzumab-trastuzumab-hy-zzxf (60 mg-60mg-2000 units/mL) 10mL 600 MG SUBCUT (10:02)
== END 2024-02-04 23:59 | disposition home or self-care (01) ==
PROVIDERS: Nurse Practitioner; Nurse Practitioner Family; PCP Nurse Practitioner Family; Visit Provider Nurse Practitioner Family
DX: Z51.12 Encounter for antineoplastic immunotherapy (principal); Z53.9 Procedure and treatment not carried out, unspecified reason; C50.811 Malignant neoplasm of overlapping sites of right female breast; E03.9 Hypothyroidism, unspecified; Z79.899 Other long term (current) drug therapy
CPT/HCPCS: 36591; 80053; 84443; 85025; 96360; 96367; 96372; 96375; 96402; 96413; 96417; J1100; J1200; J1453; J2469; J3490; J7030; J7040; J7050; J9045; J9171; J9316; Q5120

== ENCOUNTER 2024-03-03 08:00 | Oncology outpatient (recurring) (ONCR) | payer BC, SELFPAY ==
[2024-02-11 10:58] LABS: Basophils % 0.6 %; Eosinophils % 0.8 %; Hematocrit 32.9 % (36-47); Lymphocytes # 1.4 10^3/uL (0.8-4.8); Lymphocytes % 27.5 %; Mean Corpuscular HGB Conc 32.5 g/dL (30-55); Mean Corpuscular Hemoglobin 34.5 pg (27-33); Mean Corpuscular Volume 106.1 fl (85-98); Monocytes # 0.4 10^3/uL (0.2-0.9); Monocytes % 7.5 %; Neutrophils # 3.11 10^3/uL (1.8-7.7); Neutrophils % 63.4 %; Nucleated Red Blood Cells % 0 %; Platelet Count 253 10^3/cmm (157-399); Red Cell Distribution Width 13.7 % (12.1-15.1); White Blood Count 4.91 10^3/uL (3.29-11.43)
[2024-02-11 11:28] LABS: Alanine Aminotransferase 30 U/L (0-33); Albumin Level 3.8 g/dL (3.5-5.2); Alkaline Phosphatase 77 U/L (35-105); Anion Gap 15.6 (5-19); Aspartate Amino Transferase 25 U/L (0-32); Blood Urea Nitrogen 8 mg/dL (6-20); Calcium 8.3 mg/dL (8.5-10.5); Carbon Dioxide 26 mmol/L (22-29); Chloride 104 mmol/L (98-107); Globulin 2.5 g/dL (1.3-4.6); Glomerular Filtration Rate 105.4 mL/min (90-130); Glucose 129 mg/dL (65-115); Magnesium 1.2 mg/dL (1.7-2.3); Osmolality Calculated 294 mOsm/kg (285-295); Potassium 3.6 mmol/L (3.5-5.1); Sodium 142 mmol/L (136-145); Total Bilirubin 0.3 mg/dL (0.15-1.2); Total Protein 6.3 g/dL (6.6-8.7)
[2024-02-18 10:56] LABS: Basophils % 0.4 %; Eosinophils # 0.1 10^3/uL (0.0-0.8); Eosinophils % 1.1 %; Hematocrit 34.6 % (36-47); Lymphocytes # 1.3 10^3/uL (0.8-4.8); Lymphocytes % 28.7 %; Mean Corpuscular HGB Conc 32.9 g/dL (30-55); Mean Corpuscular Hemoglobin 34.5 pg (27-33); Mean Corpuscular Volume 104.8 fl (85-98); Mean Platelet Volume 9.4 fL (7.4-10.4); Monocytes # 0.3 10^3/uL (0.2-0.9); Monocytes % 7.1 %; Neutrophils % 62.5 %; Nucleated Red Blood Cells % 0 %; Platelet Count 217 10^3/cmm (157-399); Red Cell Distribution Width 13.3 % (12.1-15.1); White Blood Count 4.49 10^3/uL (3.29-11.43)
[2024-02-18 11:09] LABS: Alanine Aminotransferase 41 U/L (0-33); Albumin Level 4.1 g/dL (3.5-5.2); Alkaline Phosphatase 77 U/L (35-105); Anion Gap 15.1 (5-19); Aspartate Amino Transferase 30 U/L (0-32); Blood Urea Nitrogen 8 mg/dL (6-20); Calcium 8.8 mg/dL (8.5-10.5); Carbon Dioxide 25 mmol/L (22-29); Chloride 104 mmol/L (98-107); Globulin 2.5 g/dL (1.3-4.6); Glomerular Filtration Rate 130.1 mL/min (90-130); Glucose 106 mg/dL (65-115); Osmolality Calculated 289 mOsm/kg (285-295); Potassium 4.1 mmol/L (3.5-5.1); Sodium 140 mmol/L (136-145); Total Bilirubin 0.3 mg/dL (0.15-1.2); Total Protein 6.6 g/dL (6.6-8.7)
--- NOTE | 2024-02-28 13:00 | CTR_ITS ---
PROCEDURE INFORMATION: Exam: CT Chest With Contrast; Diagnostic Exam date and time: 02/28/2024 1:03 PM Age: 53 years old Clinical indication: Abnormal findings; Abnormal radiologic exam of lung or chest; Prior surgery; Surgery date: 6+ months; Surgery type: Right breast lumpectomy; Patient HX: HX of breast cancer; Additional info: F/u to 10/15/23 CT TECHNIQUE: Imaging protocol: Diagnostic computed tomography of the chest with contrast. Radiation optimization: All CT scans at this facility use at least one of these dose optimization techniques: automated exposure control; mA and/or kV adjustment per patient size (includes targeted exams where dose is matched to clinical indication); or iterative reconstruction. Contrast material: OMNI 350; Contrast volume: 100 ml; Contrast route: INTRAVENOUS (IV); COMPARISON: CT angio chest PE protcl [id number] 10/15/2023 3:10 PM RADIATION DOSE METRICS: Total DLP (mGy-cm): 329.04 FINDINGS: Tubes, catheters and devices: A left-sided VAD is in good position with the catheter tip in the lower SVC. Lungs: There is an oval nodule containing a central calcification in the left lower lobe. The nodule measures 2.1 cm in diameter. There is surrounding atelectasis. No other lung mass or infiltrate noted. Pleural spaces: Unremarkable. No pneumothorax. No pleural effusion. Heart: Unremarkable. No cardiomegaly. No pericardial effusion. Lymph nodes: Unremarkable. No enlarged lymph nodes. Vasculature: Unremarkable. No aortic aneurysm. Bones/joints: Unremarkable. No acute fracture. Soft tissues: There is a small linear collection of air lying in the medial aspect of the right breast. There is overlying skin thickening. CT/CT chest w con* [id number] IMPRESSION: 1. Persistent calcified nodule in the left lower lobe. There is now surrounding atelectasis but the nodule remains grossly unchanged. Continued follow-up with a CT in 3 months is recommended. 2. Scarring and soft tissue air involving the right breast related to previous surgery
[2024-02-28] MEDS: iohexol 350 mg/mL 500 mL Btl (per mL) IV (14:00)
[2024-03-03 08:12] LABS: Basophils % 0.2 %; Eosinophils # 0.1 10^3/uL (0.0-0.8); Eosinophils % 1.4 %; Lymphocytes # 1.1 10^3/uL (0.8-4.8); Lymphocytes % 25.6 %; Mean Corpuscular HGB Conc 33.3 g/dL (30-55); Mean Corpuscular Hemoglobin 33.8 pg (27-33); Mean Corpuscular Volume 101.5 fl (85-98); Mean Platelet Volume 9.2 fL (7.4-10.4); Monocytes # 0.3 10^3/uL (0.2-0.9); Monocytes % 6.6 %; Neutrophils # 2.93 10^3/uL (1.8-7.7); Neutrophils % 66.2 %; Nucleated Red Blood Cells % 0 %; Platelet Count 221 10^3/cmm (157-399); Red Blood Count 3.25 10^6/uL (3.85-5.65); White Blood Count 4.42 10^3/uL (3.29-11.43)
[2024-03-03 08:27] LABS: Alanine Aminotransferase 50 U/L (0-33); Alkaline Phosphatase 76 U/L (35-105); Anion Gap 13.8 (5-19); Aspartate Amino Transferase 39 U/L (0-32); Blood Urea Nitrogen 7 mg/dL (6-20); Calcium 8.4 mg/dL (8.5-10.5); Carbon Dioxide 26 mmol/L (22-29); Chloride 107 mmol/L (98-107); Creatinine Clr Calc Pharmacy 107.1631; Globulin 2.4 g/dL (1.3-4.6); Glomerular Filtration Rate 105.4 mL/min (90-130); Glucose 114 mg/dL (65-115); Osmolality Calculated 295 mOsm/kg (285-295); Potassium 3.8 mmol/L (3.5-5.1); Sodium 143 mmol/L (136-145); Total Bilirubin 0.3 mg/dL (0.15-1.2); Total Protein 6.4 g/dL (6.6-8.7)
[2024-03-03] MEDS: diphenhydrAMINE 25 mg Capsule PO (09:50)
[2024-03-03] MEDS: acetaminophen 325 mg Tablet 650 MG PO (09:50)
[2024-03-03] MEDS: pertuzumab-trastuzumab-hy-zzxf (60 mg-60mg-2000 units/mL) 10mL 600 MG SUBCUT (10:17)
== END 2024-03-12 23:59 | disposition home or self-care (01) ==
PROVIDERS: PCP Nurse Practitioner Family; Visit Provider Nurse Practitioner Family
DX: C50.911 Malignant neoplasm of unspecified site of right female breast (principal); Z53.9 Procedure and treatment not carried out, unspecified reason; R93.89 Abnormal findings on diagnostic imaging of other specified body structures; Z51.12 Encounter for antineoplastic immunotherapy; Z79.899 Other long term (current) drug therapy
CPT/HCPCS: 36591; 71260; 80053; 83735; 85025; 96402; J9316

== ENCOUNTER 2024-03-05 07:00 | Outpatient (CLI) | payer BC, SELFPAY ==
--- NOTE | 2024-03-05 07:45 | USCV_ITS ---
August Age: 53 Gender: F : 1970 Exam Date: 03/05/2024 07:14 Ordering Phys: Donya Carrington APRN Technologist: Exam Location: [facility] [place] Indication: high risk meds BP: 105 / 67 HR: Rhythm: Sinus Technical Quality: Adequate MEASUREMENTS (Male / Female) Normal Values 2D ECHO LV Diastolic Diameter PLAX 4.4 cm 4.2 - 5.9 / 3.9 - 5.3 cm IVS Diastolic Thickness 1.1 cm 0.6 - 1.0 / 0.6 - 0.9 cm IVS Systolic Thickness 1.5 cm LVPW Diastolic Thickness 1.1 cm 0.6 - 1.0 / 0.6 - 0.9 cm LVPW Systolic Thickness 1.5 cm LVOT Diameter 2.1 cm LV Ejection Fraction 2D Teich 69.0 % LV Ejection Fraction MOD 4C 59.6 % LV Ejection Fraction MOD 2C 69.8 % LV Ejection Fraction 2C AL 69.4 % LA Diameter 3.4 cm RA Systolic Volume 4C AL 23.6 ml RA Systolic Volume 4C MOD 23.3 ml LA Sys Volume AL 35.0 cm cubed LA Sys Volume Index AL 18.8 cm cubed/m squared Aorta at Sinotubular Diameter 2.6 cm IVC Diameter 1.9 cm M-MODE LA Ao Ratio MM 1.3 AV Cusp Separation MM 2.0 cm FINDINGS Left Ventricle Normal left ventricular size, systolic function and wall thickness, with no regional wall motion abnormalities. Left ventricular ejection fraction is estimated at 55%. Right Ventricle Right Atrium Left Atrium Mitral Valve Aortic Valve Tricuspid Valve Pulmonic Valve Pericardium Aorta IVC CONCLUSIONS Please note that this is a limited echo Normal left ventricular size, systolic function and wall thickness, with no regional wall motion abnormalities. Left ventricular ejection fraction is estimated at 55%. There is no pericardial effusion. Right atrial pressure is around 5 mm of mercury. Geronimo Minor MD (Electronically Signed) Final Date: 05 March 2024 20:10 S
== END 2024-03-05 07:01 | disposition home or self-care (01) ==
PROVIDERS: PCP Nurse Practitioner Family; Visit Provider Nurse Practitioner Family
DX: Z79.899 Other long term (current) drug therapy (principal)
CPT/HCPCS: 93308

== ENCOUNTER 2024-04-08 08:18 | Oncology outpatient (recurring) (ONCR) | payer BC, SELFPAY ==
[2024-03-24 08:24] LABS: Basophils % 0.4 %; Eosinophils % 0.7 %; Hematocrit 34.9 % (36-47); Lymphocytes # 1.3 10^3/uL (0.8-4.8); Lymphocytes % 23.6 %; Mean Corpuscular HGB Conc 33.8 g/dL (30-55); Mean Corpuscular Hemoglobin 33.4 pg (27-33); Mean Corpuscular Volume 98.9 fl (85-98); Mean Platelet Volume 9.1 fL (7.4-10.4); Monocytes # 0.3 10^3/uL (0.2-0.9); Neutrophils # 3.82 10^3/uL (1.8-7.7); Neutrophils % 69.1 %; Nucleated Red Blood Cells % 0 %; Platelet Count 242 10^3/cmm (157-399); Red Blood Count 3.53 10^6/uL (3.85-5.65); Red Cell Distribution Width 11.4 % (12.1-15.1); White Blood Count 5.52 10^3/uL (3.29-11.43)
[2024-03-24 08:49] LABS: Alanine Aminotransferase 19 U/L (0-33); Albumin Level 4.1 g/dL (3.5-5.2); Alkaline Phosphatase 86 U/L (35-105); Anion Gap 13.7 (5-19); Aspartate Amino Transferase 18 U/L (0-32); Blood Urea Nitrogen 10 mg/dL (6-20); Calcium 8.6 mg/dL (8.5-10.5); Carbon Dioxide 25 mmol/L (22-29); Chloride 105 mmol/L (98-107); Creatinine Clr Calc Pharmacy 107.8384; Globulin 2.4 g/dL (1.3-4.6); Glomerular Filtration Rate 105.4 mL/min (90-130); Glucose 105 mg/dL (65-115); Osmolality Calculated 289 mOsm/kg (285-295); Potassium 3.7 mmol/L (3.5-5.1); Sodium 140 mmol/L (136-145); Total Bilirubin 0.2 mg/dL (0.15-1.2); Total Protein 6.5 g/dL (6.6-8.7)
[2024-03-24] MEDS: diphenhydrAMINE 25 mg Capsule PO (10:03)
[2024-03-24] MEDS: acetaminophen 325 mg Tablet 650 MG PO (10:03)
[2024-03-24] MEDS: pertuzumab-trastuzumab-hy-zzxf (60 mg-60mg-2000 units/mL) 10mL 600 MG SUBCUT (10:43)
--- NOTE | 2024-03-24 11:54 | N.ONRAD NP_ITS ---
Radiation Oncology New Patient Visit Patient: Trisha August MR#: [id number] : 1970 Age: 53 Sex: Female Dictated by: Dr. 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 Chief Complaint / History of Present Illness: Patient is a 53-year-old lady who was originally noted in June to have a mass in the right breast. She had a biopsy of this done on July 23 and this returned as infiltrating ductal carcinoma the breast grade 2-3, ER/RI negative H ER 2 positive. She was also noted on scans done in August of that year to have a lymph node in the axilla for which she had a biopsy on 09/21/2023. She did have clips placed in both areas. She underwent 6 cycles of T CHP. In February approximately 1 month ago she had breast conserving surgery and removal of the 1 lymph node. She had had a pathological complete response to her chemotherapy. She is now beginning her Herceptin which she gets once every 3 weeks. She is here today to discuss the role of radiation in her case. Current Medications: acetaminophen 325 mg PO QID PRN albuterol sulfate 90 mcg/actuation 2 puffs inhalation Q4H PRN carboplatin 840 mg (84 mL) IV Q21D 5 doses cefuroxime axetil 500 mg PO BID 10 days diphenoxylate-atropine 2.5-0.025 mg (Lomotil) 2 tabs PO QID PRN docetaxel 135 mg IV DAILY famotidine 20 mg PO BID PRN hydrocodone-acetaminophen 5-325 mg tabs PO levofloxacin 500 mg PO DAILY 7 days levothyroxine TAKE ONE TABLET BY MOUTH DAILY lorazepam 0.5 mg PO Q4H PRN ondansetron HCl 4 mg PO QID PRN pegfilgrastim 6 mg (0.6 mL) SUBCUT Q21D fevpoihrrq-yzahlweduul-pi-zzxf 600 mg-600 mg- 73325 unit/10mL 600 mg-600 mg- 20,000 unit/10mL (Phesgo) 10 mL SUBCUT Q21D prochlorperazine maleate (Compazine) 10 mg PO Q4H PRN valacyclovir 500 mg PO DAILY zolpidem (Ambien) 5 mg PO BEDTIME Allergies: Medical History: No history of collagen vascular disease. No previous radiation therapy. Hypothyroid Prediabetes Surgical History: H/O: hysterectomy Port-A-Cath in place 08/20/23 Dr Barger Family History: Father Aneurysm AAA Social History: Smoking and tobacco/nicotine status: former use of tobacco/nicotine Quit status (tobacco/nicotine): has quit using Year quit tobacco: 2014 Former quit date comment: smoked 25 yrs; vaped x 5 years recently quit Second hand smoke exposure: No Alcohol intake: never Substance/Drug Use: never Caregiver/support person: Yes (spouse) Lives independently: Yes Household members: spouse Housing: House Marital status: service: No Current occupational status: employed Current gender identity: Female Special willam needs: No Agree to transfusion: Yes Current Complaints / Review of Systems: . Vital Signs: Performed on 03/24/2024 9:34 AM BMI - 29.441 kg/m2 (high), Height - 63 in, Weight - 166.2 lbs, Temperature - 97.3 f, Pulse - 75 /min, Respiration - 17 /min, O2 Sat - 95 % (low), Pain - 0, Fatigue - 0 and BP - 109/ 73 mm(hg). Physical Exam: General: Patient is in no apparent distress. She is alone today. HEENT: Normocephalic atraumatic. Pupils are equal, sclera clear, extraocular muscles intact. She has about a third of an inch growth of hair across her scalp Pulmonary: Respiratory rate is regular and nonlabored Cardiovascular: Regular rate and rhythm Breast examination showed the incision to be in the inferior medial quadrant. It is healed nicely. There is no erythema or drainage. The axillary incision is also healed up nicely. Abdomen: Nonprotuberant and nontender Extremities: Without obvious edema or lymphedema Neurological: Alert and orient x 3. Gait and speech within normal limits Psychological: Affect appropriate for current situation Performance Status: 100 Pathology: Infiltrating ductal carcinoma the breast Lab: Imaging: See HPI Impression: Stage IIb infiltrating ductal carcinoma the breast ER/RI negative H ER 2 positive, grade 2-3 Plan: I reviewed with her today the role of radiation in her case. We talked about how even though pathologically she had a complete response she did not fall into the category of patients who could forego radiation. This category includes women who are older than 65 with grade 1 or 2 lesions that are stage I and highly ER/RI positive. She verbalized understanding of this. We talked about how pathologically the response is a good prognostic sign. We reviewed the history of breast cancer and its treatment. We talked about the simulation process. We reviewed the daily treatment regiment. We discussed a 4-week course of treatment. After the above discussion she is agreed to proceed. She has gone back to work and we will accommodate her work schedule as we get her through the 4 weeks of treatment. Signed by: 03/24/2024 11:53:36 AM <<Signature on File>> Time spent with patient:45 CPT Code: CPT Code:
--- NOTE | 2024-03-31 09:09 | ONCRAD TMN_ITS ---
Radiation Oncology Weekly Treatment Management Patient: Trisha MR#: [id number] : 1970> Attending Physician: Dr. Angela Amaral Date of Service: 03/31/2024 Fractions: 1 of 20, 16 to the breast and 4 boost Referring Physician(s) : Diagnosis: C50.511 - Malignant neoplasm of lower-outer quadrant of right female breast, Diagnosed 03/24/2024 (Active) C77.3 - Secondary and unspecified malignant neoplasm of axilla and upper limb lymph nodes, Diagnosed 03/24/2024 (Active) Radiotherapy to date: Course: Rt breast, Treatment Site: Rt Breast, Ref. ID: [id number], Energy: 15X/6X, Dose/Fx (cGy): 266, #Fx: , Dose Correction (cGy): 0, Total Dose Delivered (cGy): 266, Start Date: 03/31/2024, Elapsed Days: 0 Reason for visit: The patient is being seen today as part of their regularly scheduled weekly on treatment visits to assess for acute toxicities from radiotherapy. Review of Systems: Patient has noticed no changes and she had no additional questions today. Vital Signs: Performed on 03/31/2024 8:20 AM BMI - 28.307 kg/m2 (high), Height - 63 in, Weight - 159.8 lbs, Temperature - 96.7 f, Pulse - 91 /min, Respiration - 18 /min, O2 Sat - 99 %, Pain - 0, Fatigue - 0 and BP - 150/ 93 mm(hg)(high). Physical Exam: No changes on exam Imaging: Radiation therapy imaging related to accurate target localization (i.e. KV, MV and CBCT) was reviewed. Appropriate changes, if any, were made to ensure treatment accuracy. Plan: Will continue with her treatments as planned. I have encouraged her to let us know if she should have any problems or changes. Signed by: Dr. Angela Amaral 03/31/2024 9:07:23 AM
--- NOTE | 2024-04-07 09:13 | ONCRAD TMN_ITS ---
Radiation Oncology Weekly Treatment Management Patient: Trisha MR#: [id number] : 1970> Attending Physician: Dr. Angela Amaral Date of Service: 04/07/2024 Fractions: 6 out of 20 total Referring Physician(s) : Diagnosis: C50.511 - Malignant neoplasm of lower-outer quadrant of right female breast, Diagnosed 03/24/2024 (Active) C77.3 - Secondary and unspecified malignant neoplasm of axilla and upper limb lymph nodes, Diagnosed 03/24/2024 (Active) Radiotherapy to date: Course: Rt breast, Treatment Site: Rt Breast, Ref. ID: [id number], Energy: 15X/6X, Dose/Fx (cGy): 266, #Fx: 16, Dose Correction (cGy): 0, Total Dose Delivered (cGy): 1,596, Start Date: 03/31/2024, Elapsed Days: 7 Reason for visit: The patient is being seen today as part of their regularly scheduled weekly on treatment visits to assess for acute toxicities from radiotherapy. Review of Systems: Patient had noticed some pruritus which is more systemic. She has no local symptoms to to the radiation. Vital Signs: Performed on 04/07/2024 8:08 AM BMI - 29.37 kg/m2 (high), Height - 63 in, Weight - 165.8 lbs, Temperature - 96.8 f, Pulse - 84 /min, Respiration - 18 /min, O2 Sat - 97 %, Pain - 2, Fatigue - 0 and BP - 110/ 83 mm(hg). Physical Exam: No changes on exam noted Imaging: Radiation therapy imaging related to accurate target localization (i.e. KV, MV and CBCT) was reviewed. Appropriate changes, if any, were made to ensure treatment accuracy. Plan: Will continue with her treatments as planned. I did ask her to use cortisone cream if she should have any pruritus around the breast area Signed by: Dr. Angela Amaral 04/07/2024 9:12:17 AM
== END 2024-04-11 23:59 | disposition home or self-care (01) ==
PROVIDERS: Nurse Practitioner Family; PCP Nurse Practitioner Family; Visit Provider Radiology Radiation Oncology
DX: Z51.0 Encounter for antineoplastic radiation therapy (principal); C50.811 Malignant neoplasm of overlapping sites of right female breast; C77.3 Secondary and unspecified malignant neoplasm of axilla and upper limb lymph nodes
CPT/HCPCS: 36591; 77290; 77295; 77300; 77321; 77334; 77336; 77387; 77412; 80053; 85025; 96401; J9316

== ENCOUNTER 2024-05-07 07:30 | Oncology outpatient (recurring) (ONCR) | payer BC, SELFPAY ==
[2024-04-14 08:19] LABS: Basophils % 0.3 %; Eosinophils # 0.1 10^3/uL (0.0-0.8); Hematocrit 36.8 % (36-47); Lymphocytes % 27.3 %; Mean Corpuscular HGB Conc 33.7 g/dL (30-55); Mean Corpuscular Hemoglobin 32.5 pg (27-33); Mean Corpuscular Volume 96.6 fl (85-98); Mean Platelet Volume 9.2 fL (7.4-10.4); Monocytes # 0.3 10^3/uL (0.2-0.9); Neutrophils # 2.17 10^3/uL (1.8-7.7); Neutrophils % 62.4 %; Nucleated Red Blood Cells % 0 %; Platelet Count 253 10^3/cmm (157-399); Red Blood Count 3.81 10^6/uL (3.85-5.65); Red Cell Distribution Width 11.5 % (12.1-15.1); White Blood Count 3.48 10^3/uL (3.29-11.43)
[2024-04-14 08:46] LABS: Alanine Aminotransferase 31 U/L (0-33); Albumin Level 4.1 g/dL (3.5-5.2); Alkaline Phosphatase 85 U/L (35-105); Aspartate Amino Transferase 26 U/L (0-32); Blood Urea Nitrogen 11 mg/dL (6-20); Carbon Dioxide 24 mmol/L (22-29); Chloride 104 mmol/L (98-107); Creatinine Clr Calc Pharmacy 106.8458; Globulin 2.5 g/dL (1.3-4.6); Glomerular Filtration Rate 105.4 mL/min (90-130); Glucose 95 mg/dL (65-115); Osmolality Calculated 287 mOsm/kg (285-295); Sodium 139 mmol/L (136-145); Thyroid Stimulating Hormone 1.63 uIU/mL (0.27-4.20); Total Bilirubin 0.4 mg/dL (0.15-1.2); Total Protein 6.6 g/dL (6.6-8.7)
--- NOTE | 2024-04-14 08:56 | ONCRAD TMN_ITS ---
Radiation Oncology Weekly Treatment Management Patient: Trisha MR#: [id number] : 1970> Attending Physician: Dr. Angela Amaral Date of Service: 04/14/2024 Fractions: 9 out of 20 Referring Physician(s) : Diagnosis: C50.511 - Malignant neoplasm of lower-outer quadrant of right female breast, Diagnosed 03/24/2024 (Active) C77.3 - Secondary and unspecified malignant neoplasm of axilla and upper limb lymph nodes, Diagnosed 03/24/2024 (Active) Radiotherapy to date: Course: Rt breast, Treatment Site: Rt Breast, Ref. ID: [id number], Energy: 15X/6X, Dose/Fx (cGy): 266, #Fx: , Dose Correction (cGy): 0, Total Dose Delivered (cGy): 2,394, Start Date: 03/31/2024, Elapsed Days: 14 Reason for visit: The patient is being seen today as part of their regularly scheduled weekly on treatment visits to assess for acute toxicities from radiotherapy. Review of Systems: She continues to have pain through the nipple area and a tenderness in the breast which is at about a level of 2. This has been present since her surgery. Vital Signs: Performed on 04/14/2024 8:30 AM BMI - 28.874 kg/m2 (high), Height - 63 in, Weight - 163 lbs, Temperature - 97 f, Pulse - 61 /min, Respiration - 17 /min, O2 Sat - 97 %, Pain - 2, Fatigue - 0 and BP - 118/ 77 mm(hg). Physical Exam: On exam her skin is without changes Imaging: Radiation therapy imaging related to accurate target localization (i.e. KV, MV and CBCT) was reviewed. Appropriate changes, if any, were made to ensure treatment accuracy. Plan: Will continue with her treatments as planned. She will take ibuprofen at bedtime to help with the discomfort as she is not able to lay on that side. Signed by: Dr. Angela Amaral 04/14/2024 8:56:15 AM
[2024-04-14] MEDS: acetaminophen 325 mg Tablet 650 MG PO (10:19)
[2024-04-14] MEDS: diphenhydrAMINE 25 mg Capsule PO (10:20)
[2024-04-14] MEDS: pertuzumab-trastuzumab-hy-zzxf (60 mg-60mg-2000 units/mL) 10mL 600 MG SUBCUT (10:47)
[2024-04-14 11:00] VITALS: BP 120/78; PULSE 62; RESP 18; TEMP 36.4; O2SAT 98
[2024-04-14 11:53] LABS: Vitamin B12 962 pg/mL (232-1245)
--- NOTE | 2024-04-21 08:47 | ONCRAD TMN_ITS ---
Radiation Oncology Weekly Treatment Management Patient: Trisha MR#: [id number] : 1970> Attending Physician: Dr. Angela Amaral Date of Service: 04/21/2024 Fractions: 14 out of 20 Referring Physician(s) : Diagnosis: C50.511 - Malignant neoplasm of lower-outer quadrant of right female breast, Diagnosed 03/24/2024 (Active) C77.3 - Secondary and unspecified malignant neoplasm of axilla and upper limb lymph nodes, Diagnosed 03/24/2024 (Active) Radiotherapy to date: Course: Rt breast, Treatment Site: Rt Breast, Ref. ID: [email or web address], Energy: 15X/6X, Dose/Fx (cGy): 266, #Fx: , Dose Correction (cGy): 0, Total Dose Delivered (cGy): 3,724, Start Date: 03/31/2024, Elapsed Days: 21 Reason for visit: The patient is being seen today as part of their regularly scheduled weekly on treatment visits to assess for acute toxicities from radiotherapy. Review of Systems: She has began develop a slightly pruritic rash over the upper medial quadrant. She says her skin is more tender in the area under her breast where her bra rubs Vital Signs: Performed on 04/21/2024 8:33 AM BMI - 28.626 kg/m2 (high), Height - 63 in, Weight - 161.6 lbs, Temperature - 96.6 f, Pulse - 71 /min, Respiration - 16 /min, O2 Sat - 100 %, Pain - 2, Fatigue - 0 and BP - 126/ 85 mm(hg). Physical Exam: On exam her skin is mildly hyperpigmented. It looks like her nipple is already peeled. The area under her breast is erythematous and has not yet peeled. She does have a pruritic rash in the upper inner quadrant. Imaging: Radiation therapy imaging related to accurate target localization (i.e. KV, MV and CBCT) was reviewed. Appropriate changes, if any, were made to ensure treatment accuracy. Plan: I have asked her to go ahead and use cortisone cream on the areas where she has pruritus. She otherwise continue to use her additional creams as well. We talked about how many treatments she has left. I reminded her that the area under her breast will not improve until after were finished. Signed by: Dr. Angela Amaral 04/21/2024 8:46:40 AM
--- NOTE | 2024-04-28 12:37 | ONCRAD TMN_ITS ---
Radiation Oncology Weekly Treatment Management Patient: Trisha August MR#: [id number] : 1970 Attending Physician: Dr. Angela Amaral Date of Service: 04/28/2024 Fractions: 19 out of 20 Referring Physician(s) : Diagnosis: C50.511 - Malignant neoplasm of lower-outer quadrant of right female breast, Diagnosed 03/24/2024 (Active) C77.3 - Secondary and unspecified malignant neoplasm of axilla and upper limb lymph nodes, Diagnosed 03/24/2024 (Active) Radiotherapy to date: Course: Rt breast, Treatment Site: Rt Breast, Ref. ID: [id number], Energy: 15X/6X, Dose/Fx (cGy): 266, #Fx: 16 / 16, Dose Correction (cGy): 0, Total Dose Delivered (cGy): 4,256, Start Date: 03/31/2024, End Date: 04/23/2024, Elapsed Days: 23 Course: Rt breast, Treatment Site: Rt Breast Boost, Ref. ID: [id number], Energy: 6X, Dose/Fx (cGy): 250, #Fx: 3 / 4, Dose Correction (cGy): 0, Total Dose Delivered (cGy): 750, Start Date: 04/24/2024, Elapsed Days: 4 Reason for visit: The patient is being seen today as part of their regularly scheduled weekly on treatment visits to assess for acute toxicities from radiotherapy. Review of Systems: Patient has noticed some increased itching in the medial upper quadrant which she is using cortisone on. The area under her breast is somewhat tender Vital Signs: Performed on 04/28/2024 10:26 AM BMI - 28.414 kg/m2 (high), Height - 63 in, Weight - 160.4 lbs, Temperature - 97.4 f, Pulse - 77 /min, Respiration - 17 /min, O2 Sat - 98 %, Pain - 0, Fatigue - 0 and BP - 128/ 84 mm(hg). Physical Exam: On exam her skin is mildly erythematous and slightly hyperpigmented. Does appear to be a little swollen as compared to the opposite side. No changes were noted in the axillary area Imaging: Radiation therapy imaging related to accurate target localization (i.e. KV, MV and CBCT) was reviewed. Appropriate changes, if any, were made to ensure treatment accuracy. Plan: Will continue with her treatments as planned. She will use the cortisone cream on the areas where she is having pruritus. Signed by: Dr. Angela Amaral 04/28/2024 12:50:55 PM
--- NOTE | 2024-04-29 10:05 | N.ONRD TS_ITS ---
Radiation Oncology Treatment Summary Patient: TrishaAugust MR#: [id number] : 1970 Age: 53 Sex: Female Dictated by: Dr. Angela Amaral Date of Service: 04/29/2024 Referring Physician(s) : Diagnosis: C50.511 - Malignant neoplasm of lower-outer quadrant of right female breast, Diagnosed 03/24/2024 (Active) C77.3 - Secondary and unspecified malignant neoplasm of axilla and upper limb lymph nodes, Diagnosed 03/24/2024 (Active) Radiotherapy to Date: Course: Rt breast, Treatment Site: Rt Breast, Ref. ID: [id number], Energy: 15X/6X, Dose/Fx (cGy): 266, #Fx: 16 / 16, Dose Correction (cGy): 0, Total Dose Delivered (cGy): 4,256, Start Date: 03/31/2024, End Date: 04/23/2024, Elapsed Days: 23 Course: Rt breast, Treatment Site: Rt Breast Boost, Ref. ID: [id number], Energy: 6X, Dose/Fx (cGy): 250, #Fx: 4 / 4, Dose Correction (cGy): 0, Total Dose Delivered (cGy): 1,000, Start Date: 04/24/2024, End Date: 04/29/2024, Elapsed Days: 5 Clinical Summary: The patient tolerated RT well. She had a normal skin reaction with hyperpigmentation around the edges and a pruritic rash in the upper medial quadrant. Plan: End of treatment today. Continue on the above medication until the skin reaction resolves. Follow up in one month. Signed by: Dr. Angela Amaral>04/29/2024 10:04:11 AM <<Signature on File>>
[2024-05-07 07:43] LABS: Basophils % 0.5 %; Eosinophils # 0.1 10^3/uL (0.0-0.8); Eosinophils % 2.2 %; Hematocrit 37.8 % (36-47); Lymphocytes # 0.9 10^3/uL (0.8-4.8); Lymphocytes % 24.7 %; Mean Corpuscular HGB Conc 34.4 g/dL (30-55); Mean Corpuscular Hemoglobin 32.3 pg (27-33); Monocytes # 0.3 10^3/uL (0.2-0.9); Monocytes % 8.7 %; Neutrophils # 2.35 10^3/uL (1.8-7.7); Neutrophils % 63.6 %; Nucleated Red Blood Cells % 0 %; Platelet Count 222 10^3/cmm (157-399); Red Blood Count 4.02 10^6/uL (3.85-5.65); Red Cell Distribution Width 11.6 % (12.1-15.1); White Blood Count 3.69 10^3/uL (3.29-11.43)
[2024-05-07 08:01] LABS: Alanine Aminotransferase 29 U/L (0-33); Albumin Level 4.3 g/dL (3.5-5.2); Alkaline Phosphatase 99 U/L (35-105); Aspartate Amino Transferase 26 U/L (0-32); Blood Urea Nitrogen 14 mg/dL (6-20); Calcium 9.2 mg/dL (8.5-10.5); Carbon Dioxide 25 mmol/L (22-29); Chloride 102 mmol/L (98-107); Creatinine Clr Calc Pharmacy 91.5821; Globulin 2.6 g/dL (1.3-4.6); Glomerular Filtration Rate 88.2 mL/min (90-130); Glucose 96 mg/dL (65-115); Osmolality Calculated 288 mOsm/kg (285-295); Sodium 139 mmol/L (136-145); Total Bilirubin 0.2 mg/dL (0.15-1.2); Total Protein 6.9 g/dL (6.6-8.7)
[2024-05-07] MEDS: diphenhydrAMINE 25 mg Capsule PO (09:58)
[2024-05-07] MEDS: acetaminophen 325 mg Tablet 650 MG PO (09:59)
[2024-05-07] MEDS: pertuzumab-trastuzumab-hy-zzxf (60 mg-60mg-2000 units/mL) 10mL 600 MG SUBCUT (10:30)
[2024-05-07 10:46] VITALS: BP 116/78; PULSE 78; RESP 17; TEMP 36.6; O2SAT 98
== END 2024-05-12 23:59 | disposition home or self-care (01) ==
PROVIDERS: Internal Medicine Medical Oncology; Nurse Practitioner; PCP Nurse Practitioner Family; Visit Provider Radiology Radiation Oncology
DX: Z51.12 Encounter for antineoplastic immunotherapy (principal); Z53.9 Procedure and treatment not carried out, unspecified reason; C50.511 Malignant neoplasm of lower-outer quadrant of right female breast; C77.3 Secondary and unspecified malignant neoplasm of axilla and upper limb lymph nodes; Z79.899 Other long term (current) drug therapy; R93.89 Abnormal findings on diagnostic imaging of other specified body structures
CPT/HCPCS: 36591; 77336; 77387; 77412; 80053; 82607; 84443; 85025; 96402; J9316

== ENCOUNTER 2024-06-10 10:00 | Oncology outpatient (recurring) (ONCR) | payer BC, SELFPAY ==
[2024-05-28 07:58] LABS: Basophils % 0.6 %; Eosinophils # 0.1 10^3/uL (0.0-0.8); Eosinophils % 1.9 %; Hematocrit 36.4 % (36-47); Lymphocytes # 0.9 10^3/uL (0.8-4.8); Lymphocytes % 27.4 %; Mean Corpuscular HGB Conc 33.5 g/dL (30-55); Mean Corpuscular Hemoglobin 31.4 pg (27-33); Mean Corpuscular Volume 93.6 fl (85-98); Mean Platelet Volume 8.9 fL (7.4-10.4); Monocytes # 0.3 10^3/uL (0.2-0.9); Neutrophils # 1.92 10^3/uL (1.8-7.7); Neutrophils % 59.8 %; Nucleated Red Blood Cells % 0 %; Platelet Count 210 10^3/cmm (157-399); Red Blood Count 3.89 10^6/uL (3.85-5.65); Red Cell Distribution Width 11.8 % (12.1-15.1); White Blood Count 3.21 10^3/uL (3.29-11.43)
[2024-05-28 08:20] LABS: Alanine Aminotransferase 40 U/L (0-33); Albumin Level 4.1 g/dL (3.5-5.2); Alkaline Phosphatase 99 U/L (35-105); Anion Gap 13.9 (5-19); Aspartate Amino Transferase 30 U/L (0-32); Blood Urea Nitrogen 11 mg/dL (6-20); Calcium 9.3 mg/dL (8.5-10.5); Carbon Dioxide 26 mmol/L (22-29); Chloride 101 mmol/L (98-107); Globulin 2.6 g/dL (1.3-4.6); Glomerular Filtration Rate 105.4 mL/min (90-130); Glucose 98 mg/dL (65-115); Lactate Dehydrogenase 155 U/L (135-214); Osmolality Calculated 283 mOsm/kg (285-295); Potassium 3.9 mmol/L (3.5-5.1); Sodium 137 mmol/L (136-145); Total Bilirubin 0.3 mg/dL (0.15-1.2); Total Protein 6.7 g/dL (6.6-8.7)
--- NOTE | 2024-05-28 09:08 | ONCRAD EPV_ITS ---
Radiation Oncology Established Patient Visit Patient: TrishaAugust [id number] : 1970 Age: 53 Sex: Female Dictated by: Dr. Angela Amaral Date of Service: 05/28/2024 Referring Physician(s) : Diagnosis: C50.511 - Malignant neoplasm of lower-outer quadrant of right female breast, Diagnosed 03/24/2024 (Active) C77.3 - Secondary and unspecified malignant neoplasm of axilla and upper limb lymph nodes, Diagnosed 03/24/2024 (Active) Radiotherapy to Date: Course: Rt breast, Treatment Site: Rt Breast, Ref. ID: [id number], Energy: 15X/6X, Dose/Fx (cGy): 266, #Fx: 16 / 16, Dose Correction (cGy): 0, Total Dose Delivered (cGy): 4,256, Start Date: 03/31/2024, End Date: 04/23/2024, Elapsed Days: 23 Course: Rt breast, Treatment Site: Rt Breast Boost, Ref. ID: [id number], Energy: 6X, Dose/Fx (cGy): 250, #Fx: 4 / 4, Dose Correction (cGy): 0, Total Dose Delivered (cGy): 1,000, Start Date: 04/24/2024, End Date: 04/29/2024, Elapsed Days: 5 Current History: Patient returns for her first month check. Her skin has healed. She is in good spirits. She says the only thing is that the breast is tender in the area where the surgery was done. She also have some tenderness under her arm where the surgery was done. Current Medications: Allergies: Current Complaints / Review of Systems: . Vital Signs: Performed on 05/28/2024 8:40 AM BMI - 29.37 kg/m2 (high), Height - 63 in, Weight - 165.8 lbs, Temperature - 96.7 f, Pulse - 70 /min, Respiration - 17 /min, O2 Sat - 98 %, Pain - 1, Fatigue - 0 and BP - 112/ 76 mm(hg). Physical Exam: General: Alert and oriented x 3. No acute distress. Breast: Skin across the breast is healed nicely. There is no dry areas. Really is not even any hyperpigmented areas. The tenderness does match with her surgical sites. She has no swelling in her upper extremities.. Performance Status: 100 Lab: None pending. Pathology: Primary, c50.511 - malignant neoplasm of lower-outer quadrant of right female breast, Diagnosed 03/24/2024 (active) and Primary, c77.3 - secondary and unspecified malignant neoplasm of axilla and upper limb lymph nodes, Diagnosed 03/24/2024 (active) . Imaging: See HPI Impression: Right sided breast cancer Plan: At this time she is recovered nicely from her treatments. Her skin is healed. We did talk about the tenderness and she like to wait 3 months before having her first mammogram posttreatment. She is scheduled for a CT on the for the lung lesion and an echo on the for her cardiac status. She will be seeing medical oncology today. I will go ahead and order her mammogram for 3 months. Signed by: 05/28/2024 9:07:03 AM <<Signature on File>> Time spent with patient: 20 CPT Code: CPT Code:
[2024-05-28] MEDS: acetaminophen 325 mg Tablet 650 MG PO (09:49)
[2024-05-28] MEDS: pertuzumab-trastuzumab-hy-zzxf (60 mg-60mg-2000 units/mL) 10mL 600 MG SUBCUT (10:26)
--- NOTE | 2024-06-04 12:00 | CT_ITS ---
WS: [id number] CT chest w con* [id number] HISTORY: surveillance of lung nodule TECHNIQUE: Axial imaging performed through the thorax. Coronal and sagittal reformats are submitted. All CT scans at [facility] use at least one of these dose optimization techniques: automated exposure control; mA and/or kV adjustment per patient size (includes targeted exams where dose is mat ched to clinical indication); or iterative reconstruction. CONTRAST: Omnipaque 350; 100 mL IV. DLP: 325.86 mGy.cm COMPARISON: 02/28/2024, 10/15/2023, 10/19/2022 Lungs and central airway: Continued change in appearance of the partially calcified nodule with adjac ent atelectasis in the LEFT lower lobe. Soft tissue component and atelectasis has improved since 02/10. There is a small central calcification. Thin linear atelectasis extending from the calcified nodule. No additional abnormalities are identified. No pneumonia. Pleura: Normal. No pleural effusion. Heart and pericardium: Normal size heart with no pericardial effusion. Mediastinum and bob: No mediastinum or hilar adenopathy. Vessels: Normal size aortic and pulmonary artery. No coronary artery calcifications. Chest wall and lower neck: LEFT subclavian Mediport. Postoperative seroma continues to improve and de crease in size within the central RIGHT breast. Upper abdomen: Normal. Osseous structures: No destructive process. CT/CT chest w con* [id number] IMPRESSION: 1. Continued improvement of the soft tissue and atelectasis surrounding the ca lcified granuloma in the LEFT lower lobe since 02/28/2024. No new or increasing mass. Consider reevaluation in 6 months for surveillance. 2. No metastatic nodules are identified. 3. No adenopathy.
[2024-06-04] MEDS: iohexol 350 mg/mL 500 mL Btl (per mL) IV (12:49)
--- NOTE | 2024-06-10 10:00 | USCV_ITS ---
August Age: 53 Gender: F : 1970 Exam Date: 06/10/2024 10:02 Ordering Phys: Andrzej Barney MD Technologist: LAKSHMI Exam Location: [facility] [place] Indication: BP: 120 / 70 HR: Rhythm: Sinus Technical Quality: Adequate MEASUREMENTS (Male / Female) Normal Values 2D ECHO LV Diastolic Diameter PLAX 3.9 cm 4.2 - 5.9 / 3.9 - 5.3 cm IVS Diastolic Thickness 1.1 cm 0.6 - 1.0 / 0.6 - 0.9 cm IVS Systolic Thickness 1.3 cm LVPW Diastolic Thickness 1.1 cm 0.6 - 1.0 / 0.6 - 0.9 cm LVPW Systolic Thickness 1.6 cm LVOT Diameter 2.1 cm LV Ejection Fraction 2D Teich 57.5 % LV Ejection Fraction MOD 4C 72.1 % LV Ejection Fraction MOD 2C 69.4 % LV Ejection Fraction 2C AL 70.0 % LA Diameter 3.4 cm RA Systolic Volume 4C AL 27.1 ml RA Systolic Volume 4C MOD 24.6 ml Aorta at Sinotubular Diameter 2.5 cm M-MODE LA Ao Ratio MM 1.2 AV Cusp Separation MM 2.1 cm FINDINGS Left Ventricle Normal left ventricular size, systolic function and wall thickness, with no regional wall motion abnormalities. Left ventricular ejection fraction is estimated at 55 %. Right Ventricle Right Atrium Left Atrium Mitral Valve Aortic Valve Tricuspid Valve Pulmonic Valve Pericardium Aorta IVC CONCLUSIONS Limited echo Normal left ventricular size, systolic function and wall thickness, with no regional wall motion abnormalities. Left ventricular ejection fraction is estimated at 55 %. There is no pericardial effusion. Geronimo Minor MD (Electronically Signed) Final Date: 11 June 2024 15:55 S
== END 2024-06-12 23:59 | disposition home or self-care (01) ==
LOC: RAD 06-11 00:01 → ONCMED 06-11 09:37
PROVIDERS: PCP Nurse Practitioner Family; Visit Provider Internal Medicine
DX: C50.911 Malignant neoplasm of unspecified site of right female breast (principal); R93.89 Abnormal findings on diagnostic imaging of other specified body structures; I51.9 Heart disease, unspecified; Z79.899 Other long term (current) drug therapy
CPT/HCPCS: 71260; 80053; 83615; 85025; 93308; 96401; 99024; J9316

== ENCOUNTER 2024-07-09 08:30 | Oncology outpatient (recurring) (ONCR) | payer BC, SELFPAY ==
[2024-06-18 08:15] LABS: Basophils % 0.6 %; Eosinophils # 0.1 10^3/uL (0.0-0.8); Eosinophils % 1.8 %; Hematocrit 36.1 % (36-47); Lymphocytes % 29.3 %; Mean Corpuscular HGB Conc 34.3 g/dL (30-55); Mean Corpuscular Hemoglobin 31.9 pg (27-33); Mean Corpuscular Volume 92.8 fl (85-98); Mean Platelet Volume 9.2 fL (7.4-10.4); Monocytes # 0.3 10^3/uL (0.2-0.9); Monocytes % 7.7 %; Neutrophils # 2.05 10^3/uL (1.8-7.7); Neutrophils % 60.6 %; Nucleated Red Blood Cells % 0 %; Platelet Count 230 10^3/cmm (157-399); Red Blood Count 3.89 10^6/uL (3.85-5.65); Red Cell Distribution Width 12.1 % (12.1-15.1); White Blood Count 3.38 10^3/uL (3.29-11.43)
[2024-06-18 08:47] LABS: Alanine Aminotransferase 30 U/L (0-33); Albumin Level 4.2 g/dL (3.5-5.2); Alkaline Phosphatase 93 U/L (35-105); Anion Gap 16.1 (5-19); Aspartate Amino Transferase 22 U/L (0-32); Blood Urea Nitrogen 14 mg/dL (6-20); Calcium 9.4 mg/dL (8.5-10.5); Carbon Dioxide 26 mmol/L (22-29); Chloride 102 mmol/L (98-107); Creatinine Clr Calc Pharmacy 107.5799; Globulin 2.9 g/dL (1.3-4.6); Glomerular Filtration Rate 105.4 mL/min (90-130); Glucose 96 mg/dL (65-115); Lactate Dehydrogenase 131 U/L (135-214); Osmolality Calculated 290 mOsm/kg (285-295); Potassium 4.1 mmol/L (3.5-5.1); Sodium 140 mmol/L (136-145); Total Bilirubin 0.4 mg/dL (0.15-1.2); Total Protein 7.1 g/dL (6.6-8.7)
[2024-06-18] MEDS: acetaminophen 325 mg Tablet 650 MG PO (09:27)
[2024-06-18] MEDS: pertuzumab-trastuzumab-hy-zzxf (60 mg-60mg-2000 units/mL) 10mL 600 MG SUBCUT (10:15)
[2024-06-18 10:40] VITALS: BP 110/75; PULSE 69; RESP 16; TEMP 36.6; O2SAT 95
[2024-07-09 09:17] LABS: Basophils % 0.3 %; Eosinophils # 0.1 10^3/uL (0.0-0.8); Eosinophils % 2.1 %; Hematocrit 36.2 % (36-47); Lymphocytes % 30.4 %; Mean Corpuscular HGB Conc 34.3 g/dL (30-55); Mean Corpuscular Hemoglobin 32.3 pg (27-33); Mean Corpuscular Volume 94.3 fl (85-98); Mean Platelet Volume 9.2 fL (7.4-10.4); Monocytes # 0.3 10^3/uL (0.2-0.9); Neutrophils # 1.99 10^3/uL (1.8-7.7); Neutrophils % 59.2 %; Nucleated Red Blood Cells % 0 %; Platelet Count 231 10^3/cmm (157-399); Red Blood Count 3.84 10^6/uL (3.85-5.65); Red Cell Distribution Width 12.4 % (12.1-15.1); White Blood Count 3.36 10^3/uL (3.29-11.43)
[2024-07-09 09:43] LABS: Alanine Aminotransferase 29 U/L (0-33); Albumin Level 4.3 g/dL (3.5-5.2); Alkaline Phosphatase 96 U/L (35-105); Aspartate Amino Transferase 22 U/L (0-32); Blood Urea Nitrogen 10 mg/dL (6-20); CA 15-3 19.7 U/mL (0-25); Calcium 9.1 mg/dL (8.5-10.5); Carbon Dioxide 27 mmol/L (22-29); Chloride 101 mmol/L (98-107); Creatinine Clr Calc Pharmacy 107.5799; Globulin 2.5 g/dL (1.3-4.6); Glomerular Filtration Rate 105.4 mL/min (90-130); Glucose 101 mg/dL (65-115); Lactate Dehydrogenase 148 U/L (135-214); Osmolality Calculated 287 mOsm/kg (285-295); Sodium 139 mmol/L (136-145); Total Bilirubin 0.4 mg/dL (0.15-1.2); Total Protein 6.8 g/dL (6.6-8.7)
[2024-07-09] MEDS: acetaminophen 325 mg Tablet 650 MG PO (11:50)
[2024-07-09] MEDS: dexamethasone 4 mg Tablet PO (12:48)
[2024-07-09] MEDS: pertuzumab-trastuzumab-hy-zzxf (60 mg-60mg-2000 units/mL) 10mL 600 MG SUBCUT (13:16)
[2024-07-09 13:38] VITALS: BP 125/77; PULSE 85; RESP 18; TEMP 36.6; O2SAT 98
== END 2024-07-10 23:59 | disposition home or self-care (01) ==
PROVIDERS: Nurse Practitioner; PCP Nurse Practitioner Family; Visit Provider Internal Medicine
DX: Z53.9 Procedure and treatment not carried out, unspecified reason; Z51.12 Encounter for antineoplastic immunotherapy; C50.911 Malignant neoplasm of unspecified site of right female breast; Z17.1 Estrogen receptor negative status [ER-]; Z79.52 Long term (current) use of systemic steroids; Z79.899 Other long term (current) drug therapy
CPT/HCPCS: 36415; 36591; 80053; 83615; 85025; 86300; 96402; J8540; J9316

== ENCOUNTER 2024-07-30 08:33 | Oncology outpatient (recurring) (ONCR) | payer BC, SELFPAY ==
[2024-07-30 09:09] LABS: Basophils % 0.5 %; Eosinophils # 0.1 10^3/uL (0.0-0.8); Eosinophils % 2.8 %; Hematocrit 37.8 % (36-47); Lymphocytes # 1.2 10^3/uL (0.8-4.8); Lymphocytes % 31.4 %; Mean Corpuscular HGB Conc 33.9 g/dL (30-55); Mean Corpuscular Hemoglobin 32.7 pg (27-33); Mean Corpuscular Volume 96.4 fl (85-98); Mean Platelet Volume 9.3 fL (7.4-10.4); Monocytes # 0.3 10^3/uL (0.2-0.9); Monocytes % 7.7 %; Neutrophils # 2.23 10^3/uL (1.8-7.7); Neutrophils % 57.6 %; Nucleated Red Blood Cells % 0 %; Platelet Count 255 10^3/cmm (157-399); Red Blood Count 3.92 10^6/uL (3.85-5.65); Red Cell Distribution Width 12.2 % (12.1-15.1); White Blood Count 3.88 10^3/uL (3.29-11.43)
[2024-07-30 09:43] LABS: Alanine Aminotransferase 27 U/L (0-33); Albumin Level 4.2 g/dL (3.5-5.2); Alkaline Phosphatase 97 U/L (35-105); Aspartate Amino Transferase 20 U/L (0-32); Blood Urea Nitrogen 13 mg/dL (6-20); Carbon Dioxide 25 mmol/L (22-29); Chloride 106 mmol/L (98-107); Globulin 2.6 g/dL (1.3-4.6); Glomerular Filtration Rate 105.4 mL/min (90-130); Glucose 91 mg/dL (65-115); Osmolality Calculated 292 mOsm/kg (285-295); Sodium 141 mmol/L (136-145); Total Bilirubin 0.2 mg/dL (0.15-1.2); Total Protein 6.8 g/dL (6.6-8.7)
[2024-07-30] MEDS: acetaminophen 325 mg Tablet 650 MG PO (10:33)
[2024-07-30] MEDS: dexamethasone 4 mg Tablet PO (10:33)
--- NOTE | 2024-07-30 10:37 | PC.NURSE ---
pt took claritin at home and refused benadryl
[2024-07-30] MEDS: pertuzumab-trastuzumab-hy-zzxf (60 mg-60mg-2000 units/mL) 10mL 600 MG SUBCUT (10:56)
== END 2024-08-10 23:59 | disposition home or self-care (01) ==
PROVIDERS: Nurse Practitioner; PCP Nurse Practitioner Family; Visit Provider Internal Medicine
DX: Z51.12 Encounter for antineoplastic immunotherapy (principal); C50.911 Malignant neoplasm of unspecified site of right female breast; Z17.1 Estrogen receptor negative status [ER-]; R93.89 Abnormal findings on diagnostic imaging of other specified body structures; R91.1 Solitary pulmonary nodule; R19.7 Diarrhea, unspecified; G47.00 Insomnia, unspecified; Z79.899 Other long term (current) drug therapy; Z92.21 Personal history of antineoplastic chemotherapy; Z79.52 Long term (current) use of systemic steroids; Z92.3 Personal history of irradiation; R21 Rash and other nonspecific skin eruption
CPT/HCPCS: 80053; 85025; 96401; J8540; J9316; J9999

== ENCOUNTER 2024-08-20 08:04 | Oncology outpatient (recurring) (ONCR) | payer BC, SELFPAY ==
[2024-08-20 08:28] LABS: Basophils % 0.8 %; Eosinophils # 0.1 10^3/uL (0.0-0.8); Eosinophils % 2.8 %; Hematocrit 37.3 % (36-47); Lymphocytes % 28.7 %; Mean Corpuscular HGB Conc 34.3 g/dL (30-55); Mean Corpuscular Hemoglobin 32.2 pg (27-33); Mean Platelet Volume 9.2 fL (7.4-10.4); Monocytes # 0.3 10^3/uL (0.2-0.9); Monocytes % 8.1 %; Neutrophils # 2.14 10^3/uL (1.8-7.7); Neutrophils % 59.6 %; Nucleated Red Blood Cells % 0 %; Platelet Count 245 10^3/cmm (157-399); Red Blood Count 3.97 10^6/uL (3.85-5.65); Red Cell Distribution Width 11.7 % (12.1-15.1); White Blood Count 3.59 10^3/uL (3.29-11.43)
[2024-08-20 08:53] LABS: Alanine Aminotransferase 24 U/L (0-33); Albumin Level 4.3 g/dL (3.5-5.2); Alkaline Phosphatase 88 U/L (35-105); Anion Gap 15.9 (5-19); Aspartate Amino Transferase 20 U/L (0-32); Blood Urea Nitrogen 13 mg/dL (6-20); CA 15-3 18.6 U/mL (0-25); Calcium 9.3 mg/dL (8.5-10.5); Carbon Dioxide 24 mmol/L (22-29); Chloride 104 mmol/L (98-107); Globulin 2.7 g/dL (1.3-4.6); Glomerular Filtration Rate 88.2 mL/min (90-130); Glucose 94 mg/dL (65-115); Lactate Dehydrogenase 152 U/L (135-214); Osmolality Calculated 290 mOsm/kg (285-295); Potassium 3.9 mmol/L (3.5-5.1); Sodium 140 mmol/L (136-145); Total Bilirubin 0.4 mg/dL (0.15-1.2)
[2024-08-20] MEDS: dexamethasone 4 mg/mL INJ IVP (10:06)
[2024-08-20] MEDS: acetaminophen 325 mg Tablet 650 MG PO (10:18)
[2024-08-20] MEDS: pertuzumab-trastuzumab-hy-zzxf (60 mg-60mg-2000 units/mL) 10mL 600 MG SUBCUT (10:25)
[2024-08-20 10:42] LABS: 25 Hydroxy Vitamin D 25 ng/mL (30-100)
== END 2024-09-09 23:59 | disposition home or self-care (01) ==
PROVIDERS: Nurse Practitioner Family; PCP Nurse Practitioner Family; Visit Provider Internal Medicine
DX: Z51.12 Encounter for antineoplastic immunotherapy (principal); C50.911 Malignant neoplasm of unspecified site of right female breast; Z17.1 Estrogen receptor negative status [ER-]; Z79.52 Long term (current) use of systemic steroids; Z79.899 Other long term (current) drug therapy
CPT/HCPCS: 80053; 82306; 83615; 85025; 86300; 96374; 96401; J1100; J9316; J9999

== ENCOUNTER 2024-10-01 14:00 | Oncology outpatient (recurring) (ONCR) | payer BC, SELFPAY ==
[2024-09-10 10:15] LABS: Basophils % 0.6 %; Eosinophils # 0.1 10^3/uL (0.0-0.8); Eosinophils % 1.8 %; Hematocrit 37.5 % (36-47); Lymphocytes # 1.1 10^3/uL (0.8-4.8); Lymphocytes % 31.9 %; Mean Corpuscular HGB Conc 34.1 g/dL (30-55); Mean Corpuscular Hemoglobin 32.3 pg (27-33); Mean Corpuscular Volume 94.7 fl (85-98); Mean Platelet Volume 9.2 fL (7.4-10.4); Monocytes # 0.2 10^3/uL (0.2-0.9); Monocytes % 6.4 %; Neutrophils # 2.02 10^3/uL (1.8-7.7); Nucleated Red Blood Cells % 0 %; Platelet Count 239 10^3/cmm (157-399); Red Blood Count 3.96 10^6/uL (3.85-5.65); Red Cell Distribution Width 11.8 % (12.1-15.1); White Blood Count 3.42 10^3/uL (3.29-11.43)
[2024-09-10 10:43] LABS: Alanine Aminotransferase 28 U/L (0-33); Albumin Level 4.3 g/dL (3.5-5.2); Alkaline Phosphatase 91 U/L (35-105); Aspartate Amino Transferase 21 U/L (0-32); Blood Urea Nitrogen 9 mg/dL (6-20); Calcium 9.4 mg/dL (8.5-10.5); Carbon Dioxide 25 mmol/L (22-29); Chloride 103 mmol/L (98-107); Chol HDL Ratio 3.75 mg/dL (0.0-4.40); Cholesterol 240 mg/dL (0-200); Creatinine Clr Calc Pharmacy 108.4725; Globulin 2.7 g/dL (1.3-4.6); Glucose 93 mg/dL (65-115); HDL Cholesterol 64 mg/dL (60-100); LDL Cholesterol Calculated 143 mg/dL (50-129); LDL HDL Ratio 2.23 RATIO (0.00-3.22); Osmolality Calculated 286 mOsm/kg (285-295); Sodium 139 mmol/L (136-145); Thyroid Stimulating Hormone 3.72 uIU/mL (0.27-4.20); Total Bilirubin 0.4 mg/dL (0.15-1.2); Triglycerides 166 mg/dL (0-150)
[2024-09-10 11:16] LABS: Estmated Average Glucose 123; Hemoglobin A1C 5.9 % (4.0-6.0)
[2024-09-10] MEDS: acetaminophen 325 mg Tablet 650 MG PO (11:28)
[2024-09-10] MEDS: sodium chloride 0.9% 250 ML 75 ML IV (11:29)
[2024-09-10] MEDS: dexamethasone 4 mg/mL INJ IVP (11:31)
[2024-09-10] MEDS: pertuzumab-trastuzumab-hy-zzxf (60 mg-60mg-2000 units/mL) 10mL 600 MG SUBCUT (12:13)
--- NOTE | 2024-09-15 15:00 | USCV_ITS ---
August Age: 54 Gender: F : 1970 Exam Date: 09/15/2024 15:07 Ordering Phys: Milagros Crooks APRN Technologist: Exam Location: [facility] – [place]_ Indication: high risk meds BP: 112 / 65 HR: Rhythm: Sinus Technical Quality: Adequate MEASUREMENTS (Male / Female) Normal Values 2D ECHO LV Diastolic Diameter PLAX 3.6 cm 4.2 - 5.9 / 3.9 - 5.3 cm IVS Diastolic Thickness 1.1 cm 0.6 - 1.0 / 0.6 - 0.9 cm IVS Systolic Thickness 1.3 cm LVPW Diastolic Thickness 0.9 cm 0.6 - 1.0 / 0.6 - 0.9 cm LVPW Systolic Thickness 1.2 cm LVOT Diameter 2.0 cm LV Ejection Fraction 2D Teich 65.3 % LV Ejection Fraction MOD 4C 71.9 % LV Ejection Fraction MOD 2C 66.8 % LV Ejection Fraction 2C AL 69.1 % LA Diameter 3.7 cm RA Systolic Volume 4C AL 29.4 ml RA Systolic Volume 4C MOD 27.5 ml Aorta at Sinotubular Diameter 2.7 cm M-MODE LA Ao Ratio MM 1.1 AV Cusp Separation MM 2.0 cm FINDINGS Left Ventricle Normal left ventricular size and systolic function, EF 67%.no regional wall motion abnormalities. Right Ventricle Normal right ventricular size and systolic function. Right Atrium The right atrium is normal in size. Left Atrium The left atrium is normal in size. Mitral Valve No gross abnormalities noted Aortic Valve Structurally normal trileaflet aortic valve. Tricuspid Valve Structurally normal tricuspid valve. Pulmonic Valve No gross abnormalities noted Pericardium No pericardial effusion. Aorta Normal aortic annulus size. IVC Normal inferior vena cava. CONCLUSIONS Normal left ventricular size and systolic function, EF 67%. No regional wall motion abnormalities. Normal cardiac chamber sizes. No gross valvular abnormalities, morphologically. There is no pericardial effusion. There are no intracardiac masses. Compared to the study from 05/21/2024, there may not be a significant change. Dr Yvonne England MD FAC (Electronically Signed) Final Date: 20 Sep 2024 08:27 S
[2024-10-01 13:57] LABS: Basophils % 0.5 %; Eosinophils # 0.1 10^3/uL (0.0-0.8); Eosinophils % 2.2 %; Hematocrit 37.1 % (36-47); Lymphocytes # 1.4 10^3/uL (0.8-4.8); Lymphocytes % 32.6 %; Mean Corpuscular HGB Conc 34.2 g/dL (30-55); Mean Corpuscular Hemoglobin 32.1 pg (27-33); Mean Corpuscular Volume 93.7 fl (85-98); Monocytes # 0.4 10^3/uL (0.2-0.9); Monocytes % 9.1 %; Neutrophils # 2.31 10^3/uL (1.8-7.7); Neutrophils % 55.4 %; Nucleated Red Blood Cells % 0 %; Platelet Count 251 10^3/cmm (157-399); Red Blood Count 3.96 10^6/uL (3.85-5.65); Red Cell Distribution Width 11.8 % (12.1-15.1); White Blood Count 4.17 10^3/uL (3.29-11.43)
[2024-10-01 14:17] LABS: Alanine Aminotransferase 28 U/L (0-33); Albumin Level 4.3 g/dL (3.5-5.2); Alkaline Phosphatase 86 U/L (35-105); Anion Gap 18.1 (5-19); Aspartate Amino Transferase 23 U/L (0-32); Blood Urea Nitrogen 11 mg/dL (6-20); Calcium 9.1 mg/dL (8.5-10.5); Carbon Dioxide 25 mmol/L (22-29); Chloride 103 mmol/L (98-107); Creatinine Clr Calc Pharmacy 92.7069; Globulin 2.7 g/dL (1.3-4.6); Glomerular Filtration Rate 87.9 mL/min (90-130); Glucose 94 mg/dL (65-115); Osmolality Calculated 293 mOsm/kg (285-295); Potassium 4.1 mmol/L (3.5-5.1); Sodium 142 mmol/L (136-145); Total Bilirubin 0.3 mg/dL (0.15-1.2)
[2024-10-01] MEDS: dexamethasone 4 mg/mL INJ IVP (15:45)
[2024-10-01] MEDS: loratadine 10 mg Tablet PO (15:46)
[2024-10-01] MEDS: acetaminophen 325 mg Tablet 650 MG PO (15:46)
[2024-10-01] MEDS: pertuzumab-trastuzumab-hy-zzxf (60 mg-60mg-2000 units/mL) 10mL 600 MG SUBCUT (15:50)
== END 2024-10-10 23:59 | disposition home or self-care (01) ==
PROVIDERS: Internal Medicine; Nurse Practitioner Family; PCP Nurse Practitioner Family; Visit Provider Radiology Radiation Oncology
DX: Z53.9 Procedure and treatment not carried out, unspecified reason (principal); Z51.12 Encounter for antineoplastic immunotherapy; C50.911 Malignant neoplasm of unspecified site of right female breast; Z79.52 Long term (current) use of systemic steroids; Z79.899 Other long term (current) drug therapy
CPT/HCPCS: 80053; 80061; 83036; 84443; 85025; 93308; 96374; 96375; 96402; 96409; J1100; J7050; J9316; J9999

== ENCOUNTER 2024-10-26 15:26 | Oncology outpatient (recurring) (ONCR) | payer BC, SELFPAY | END 2024-11-09 23:59 | disposition home or self-care (01) | PROVIDERS: PCP Nurse Practitioner Family; Visit Provider Radiology Radiation Oncology | DX: C50.911 Malignant neoplasm of unspecified site of right female breast (principal); Z53.9 Procedure and treatment not carried out, unspecified reason; Z51.12 Encounter for antineoplastic immunotherapy; Z17.1 Estrogen receptor negative status [ER-]; Z79.52 Long term (current) use of systemic steroids; Z79.899 Other long term (current) drug therapy | CPT/HCPCS: 96523 ==

== ENCOUNTER 2024-11-26 13:00 | Oncology outpatient (recurring) (ONCR) | payer BC, SELFPAY ==
--- NOTE | 2024-11-23 12:00 | CT_ITS ---
WS: [id number] CT chest w con* [id number] REASON FOR EXAM: infiltrating ductal carcinoma of right breast IV CONTRAST ADMINISTERED: 100 mL of Omnipaque 350. TOTAL EXAM DLP: 326.[address] scans at [facility] use at least one of these dose optimization techniques: automated exposure control; mA and/or kV adjustment per patient size (includes targeted exams where dose is matched to clinical indication); or iterative reconstruction. COMPARISON EXAMINATION: 06/04/2024. FINDINGS: Further resolution of presumed inflammatory changes involving the calcified granuloma in the left lower lung. Findings now appear to be evolving parenchymal scarring and chronic atelectasis. No new findings in the left lung. New findings in the right lung best seen seen on axial images axial images 31 through 34 series 4. Subtle small pleural-based reactive appearing changes in the right mid anterior lung. Also in the right lung similar abnormality best seen on coronal images 34 and 35 series 7 in the right lower lung. No significant adenopathy and no significant bony abnormality. CT/CT chest w con* [id number] IMPRESSION: Continued resolution of previously demonstrated abnormality in the right lower lung as above. Subtle new findings in the right lung as noted above. These findings do not jacki ear to be metastatic but more likely subclinical reactive inflammatory changes. Due to the patient's history however recommended follow-up is 6 months. Intrav enous contrast would not be required.
[2024-11-23] MEDS: iohexol 350 mg/mL 500 mL Btl (per mL) IV (12:10)
[2024-11-23 12:12] LABS: Hematocrit 34.5 % (36-47); Hemoglobin 12.10 g/dL (11.27-16.99); Mean Corpuscular HGB Conc 35.1 g/dL (30-55); Mean Corpuscular Hemoglobin 32.7 pg (27-33); Mean Corpuscular Volume 93.2 fl (85-98); Nucleated Red Blood Cells % 0 %; Platelet Count 236 10^3/cmm (157-399); Red Blood Count 3.70 10^6/uL (3.85-5.65); White Blood Count 3.88 10^3/uL (3.29-11.43)
[2024-11-23 12:43] LABS: Alanine Aminotransferase 20 U/L (0-33); Albumin Level 4.2 g/dL (3.5-5.2); Alkaline Phosphatase 82 U/L (35-105); Anion Gap 17.7 (5-19); Aspartate Amino Transferase 21 U/L (0-32); Blood Urea Nitrogen 11 mg/dL (6-20); CA 15-3 17.7 U/mL (0-25); Calcium 9.0 mg/dL (8.5-10.5); Carbon Dioxide 24 mmol/L (22-29); Chloride 100 mmol/L (98-107); Globulin 2.6 g/dL (1.3-4.6); Glucose 157 mg/dL (65-115); Osmolality Calculated 289 mOsm/kg (285-295); Potassium 3.7 mmol/L (3.5-5.1); Sodium 138 mmol/L (136-145); Total Protein 6.8 g/dL (6.6-8.7)
== END 2024-12-10 23:59 | disposition home or self-care (01) ==
PROVIDERS: Internal Medicine; PCP Nurse Practitioner Family; Visit Provider Internal Medicine Medical Oncology
DX: Z53.9 Procedure and treatment not carried out, unspecified reason
CPT/HCPCS: 36591; 71260; 80053; 83615; 85025; 86300

== ENCOUNTER 2024-12-24 11:16 | Oncology outpatient (recurring) (ONCR) | payer BC, SELFPAY | END 2025-01-10 23:59 | disposition home or self-care (01) | LOC: ONCMED 11:17 | PROVIDERS: PCP Nurse Practitioner Family; Visit Provider Internal Medicine Medical Oncology | DX: Z45.2 Encounter for adjustment and management of vascular access device (principal); Z95.828 Presence of other vascular implants and grafts | CPT/HCPCS: 96523 ==

== ENCOUNTER 2025-01-28 11:11 | Oncology outpatient (recurring) (ONCR) | payer BC, SELFPAY | END 2025-02-09 23:59 | disposition home or self-care (01) | LOC: ONCMED 11:11 | PROVIDERS: PCP Nurse Practitioner Family; Visit Provider Internal Medicine Medical Oncology | DX: Z45.2 Encounter for adjustment and management of vascular access device (principal); Z95.828 Presence of other vascular implants and grafts | CPT/HCPCS: 96523 ==

== ENCOUNTER 2025-02-18 11:03 | Oncology outpatient (recurring) (ONCR) | payer BC, SELFPAY ==
[2025-02-18 11:51] LABS: Hematocrit 40.6 % (36-47); Hemoglobin 14.10 g/dL (11.27-16.99); Mean Corpuscular HGB Conc 34.7 g/dL (30-55); Mean Corpuscular Hemoglobin 32.2 pg (27-33); Mean Corpuscular Volume 92.7 fl (85-98); Nucleated Red Blood Cells % 0 %; Platelet Count 259 10^3/cmm (157-399); Red Blood Count 4.38 10^6/uL (3.85-5.65); White Blood Count 4.07 10^3/uL (3.29-11.43)
[2025-02-18 12:34] LABS: Alanine Aminotransferase 17 U/L (0-33); Albumin Level 4.5 g/dL (3.5-5.2); Alkaline Phosphatase 80 U/L (35-105); Anion Gap 15.9 (5-19); Aspartate Amino Transferase 18 U/L (0-32); Blood Urea Nitrogen 10 mg/dL (6-20); CA 15-3 17.8 U/mL (0-25); Calcium 9.5 mg/dL (8.5-10.5); Carbon Dioxide 25 mmol/L (22-29); Chloride 103 mmol/L (98-107); Globulin 2.9 g/dL (1.3-4.6); Glucose 89 mg/dL (65-115); Osmolality Calculated 289 mOsm/kg (285-295); Potassium 3.9 mmol/L (3.5-5.1); Sodium 140 mmol/L (136-145); Thyroid Stimulating Hormone 0.21 uIU/mL (0.27-4.20); Total Protein 7.4 g/dL (6.6-8.7); Vitamin B12 1109 pg/mL (232-1245)
== END 2025-03-12 23:59 | disposition home or self-care (01) ==
PROVIDERS: Internal Medicine; PCP Nurse Practitioner Family; Visit Provider Internal Medicine Medical Oncology
DX: C50.919 Malignant neoplasm of unspecified site of unspecified female breast (principal); E55.9 Vitamin D deficiency, unspecified
CPT/HCPCS: 36591; 80053; 82607; 83615; 84443; 85025; 86300

== ENCOUNTER 2025-04-05 07:29 | Day surgery (SDC) | payer BC, SELFPAY ==
[2025-04-05 07:57] VITALS: BP 119/80; PULSE 67; RESP 17; TEMP 36.1; O2SAT 98; BMI 28.3
--- NOTE | 2025-04-05 08:56 | P.ANESASSM_ITS ---
Pre-Anesthetic Assessment Height/Weight: Height 1.6 m Weight 72.575 kg Temp Pulse Resp BP Pulse Ox O2 Del Method 97.0 F L 67 17 119/80 98 Room Air 04/05/25 07:57 04/05/25 07:57 04/05/25 07:57 04/05/25 07:57 04/05/25 07:57 04/05/25 07:57 Operation Date: 04/05/25 09:40 Proposed Procedures p Portacath Removal [id number] Z95.828(Not Applicable) - Dane Fajardo MD Familial anesthetic complications: none Was Beta Sean taken within 24 hours: N/A Was Clonidine taken within 24 hours: N/A Last intake: Intake Last Liquid Date 04/04/25 Last Liquid Time 19:00 Last Solid Date 04/04/25 Last Solid Time 19:00 Social No alcohol and No tobacco Exam alert, oriented x 3, clear to auscultation bilaterally and regular rate & rhythm Airway Mallampati: Class II Dentition: full GI Gastroesophageal Reflux Disease Metabolic Thyroid Disease Anesthetic Plan ASA status: 3 Anesthesia: MAC Risk of > 500 ml blood loss (7ml/kg in children): No Medications/Allergies Home Medications ?Medication ?Instructions ?Recorded ?Confirmed ?Last Taken ?Type acetaminophen 325 mg tablet 325 mg PO QID PRN Pain 01/0304/01/25 08/12/23 History Held on 08/20/23. Instructions: Resume on 08/22/23. semaglutide 0.25 mg or 0.5 mg (2 0.25 mg (0.368 mL) MISTRY BCUT .weekly 09/10/24 04/01/25 03/26/25 Rx mg/3 mL) subcutaneous pen injector 4 weeks #3 mL (Ozempic) zolpidem 5 mg tablet (Ambien) 5 mg PO BEDTIME #30 tabs 01/30/25 04/01/25 04/04/25 Rx celecoxib 200 mg capsule (Celebrex) 200 mg PO DAILY #3 0 caps 02/18/25 04/01/25 04/01/25 Rx levothyroxine 25 mcg tablet 25 mcg PO DAILY 04/01/25 1 06/01/24 02/12/25 History Allergies Allergy/AdvReac Type Severity Reaction Status Date / Time No Known Allergies Allergy Verified 04/01/25 15:13 [facility] Anesthesia Medical History Prediabetes Hypothyroid Surgical History Port-A-Cath in place 08/20/23 Dr Barger H/O: hysterectomy Family History Father Aneurysm AAA Social History Smoking and tobacco/nicotine status: never used tobacco/nicotine Quit status (tobacco/nicotine): has quit using Year quit tobacco: 2014 Former quit date comment: smoked 25 yrs; vaped x 5 years recently quit Second hand smoke exposure: No Alcohol intake: never Substance/Drug Use: never Caregiver/support person: Yes (spouse) Lives independently: Yes Household members: spouse Housing: House Marital status: service: No Current occupational status: employed Current gender identity: Female Special willam needs: No Agree to transfusion: Yes Data Anesthesia Cardiac Studies: Echocardiogram 12/26/23 Echocardiogram Limited Views 09/15/24
--- NOTE | 2025-04-05 09:01 | P.HPUD_ITS ---
Surgery/Procedure H&P Update DATE OF PROCEDURE: April 05, 2025 DATE H&P PERFORMED: 03/17/25 H&P UPDATE INFORMATION: I have reviewed H&P completed within last 30 days, I have examined patient prior to procedure, No changes to prior documentation, H&P is in [facility] EMR on date indicated and Risks and benefits of the procedure reviewed PLANNED PROCEDURE: Operation Date: 04/05/25 09:40 Proposed Procedures p Portacath Removal [id number] Z95.828(Not Applicable) - Dane Fajardo MD
[2025-04-05] MEDS: ceFAZolin 2,000 mg SDV 2000 MG IVP (09:49)
[2025-04-05] MEDS: lidocaine-epi 1% 20 mL INJ INJECTION (09:58)
[2025-04-05] MEDS: BUPivacaine 0.25% INJ 10 mL INJECTION (09:59)
--- NOTE | 2025-04-05 10:14 | PM.OP ---
Operative Report Date of procedure: April 05, 2025 Pre-op diagnosis: History of breast cancer Post-op diagnosis: Same Post-op findings: Left upper chest Port-A-Cath in place Procedure done: Excision of left upper chest Port-A-Cath Specimens removed/disposition: Port-A-Cath Surgeon: Dane Fajardo MD Maintenance Mechanic Elevators: BRENNON OR STaff Estimated blood loss: 5 Complications: none Brief History: Patient with history of breast cancer who has completed therapy, here for removal of port Procedure: Patient was brought into the OR, she was placed in a supine position. Monitored anesthesia care was initiated. The left upper chest was prepped and draped in the usual fashion and a timeout was conducted. Local anesthesia was infiltrated. I made a 3.5 cm incision overlying the previous area of incision, the incision was deepened until the capsule of the pore was open, I delivered the port through the skin and then I remove the complete catheter while holding pressure at the level of the subclavian vein to prevent backbleeding. Once the catheter was removed the tract was obliterated with a #3-0 Vicryl suture. No residual bleeding was noted. The capsule was then excised with electrocautery to prevent seroma. Hemostasis was achieved. The wound was closed in layers using #3-0 Vicryl for the subcutaneous tissue and #4 Monocryl for the skin. Dermabond was applied. A sterile dressing was placed on top. At the end of the procedure all counts were correct the patient tolerated well the procedure was transferred to the PACU in stable condition
[2025-04-05 10:18] VITALS: BP 99/65; PULSE 85; RESP 20; TEMP 36.1; O2SAT 94
[2025-04-05 10:25] VITALS: BP 105/68; PULSE 85; RESP 18; O2SAT 95
[2025-04-05 10:30] VITALS: BP 96/63; PULSE 78; RESP 18; O2SAT 96
[2025-04-05 10:35] VITALS: BP 98/64; PULSE 74; RESP 17; O2SAT 96
[2025-04-05 10:38] VITALS: BP 94/65; PULSE 75; RESP 17; O2SAT 97
--- NOTE | 2025-04-05 11:05 | ANE.PACU2 ---
Inpatient post-anesthesia follow up: Airway intact: Yes Vital signs: Temperature 97.0 F Pulse Rate 75 Respiratory Rate 17 Blood Pressure 94/65 Pulse Oximetry 97 Oxygen Delivery Me thod Room Air Oxygen Flow Rate Fraction of Inspir ed Oxygen Hydration adequate: Yes Nausea and vomiting: No Pain level: 1 Mental status: Baseline
== END 2025-04-05 11:06 | disposition home or self-care (01) ==
PROVIDERS: PCP Nurse Practitioner Family; Visit Provider Surgery
PROC: (CPT 36590; principal; 2025-04-05 09:40)
DX: Z85.3 Personal history of malignant neoplasm of breast (principal); K21.9 Gastro-esophageal reflux disease without esophagitis; E03.9 Hypothyroidism, unspecified; R73.03 Prediabetes; Z87.891 Personal history of nicotine dependence; Z79.84 Long term (current) use of oral hypoglycemic drugs
CPT/HCPCS: 36590; J0690; J2250; J2704; J2710; J3010; J3490; J7030; J9999

== ENCOUNTER → 2025-04-29 11:28 | Outpatient (BNVA) | payer BC, SELFPAY | PROVIDERS: PCP Nurse Practitioner Family; Visit Provider Nurse Practitioner Family | DX: E03.9 Hypothyroidism, unspecified (principal) | CPT/HCPCS: 84439; 84443; 84481 ==

== ENCOUNTER 2025-05-12 10:15 | Oncology outpatient (recurring) (ONCR) | payer BC, SELFPAY ==
--- NOTE | 2025-05-03 15:00 | XR_ITS ---
WS: [id number] DEXA (DUAL ENERGY X-RAY ABSORPTIOMETRY) Bone mineral density was performed using a netomat machine. HISTORY: post meopausal and post chemo tx COMPARISON: None available. Lumbar spine BMD (L1-L4): 1.040 g/cm2 T score: -1.2 Z score: -0.8 Total hip BMD: Left: 0.832 g/cm2. T score: -1.4 Z score: -1.0 Right: 0.854 g/cm2. T score: -1.2 Z score: -0.8 10 year probability of a major osteoporotic fracture is 5.5%. XR/XR DEXA axial skeleton* [id number] IMPRESSION: OSTEOPENIA based upon the WHO classification for females.
--- NOTE | 2025-05-12 10:15 | USR_ITS ---
PROCEDURE INFORMATION: Exam: US Soft Tissue Head and Neck, Thyroid Exam date and time: 05/12/2025 9:50 AM Age: 54 years old Clinical indication: Other abnormal lab; Other specified abnormal findings of blood chemi. . . ; Additional info: R79.89 - other specified abnormal findings of blood chemi. . . TECHNIQUE: Imaging protocol: Real-time ultrasound scan of the neck with image documentation. Exam focused on the thyroid. COMPARISON: CT chest w con* [id number] 11/23/2024 12:05 PM FINDINGS: Right thyroid lobe: The right lobe measures 2.5 x 2 x 5.4 cm. The right lobe is heterogeneous secondary to nodules. Nodule 1: Right Mid, 2.5 x 1.7 x 1.8 cm, mixed cystic and solid, wider than tall, isoechoic, no calcifications, TR 2. Left thyroid lobe: The left lobe measures 2.7 x 3.3 x 1.4 cm. The left lobe is heterogeneous in echogenicity. Nodule 2: Left mid, 2.7 x 1.4 x 3.3 cm, solid, hyperechoic, wider than tall, no calcifications, TR 3. Nodule 3: Left inferior, 2.7 x 1.3 x 1.4 cm, solid, hyperechoic, wider than tall, no calcifications, TR 3. Isthmus: The isthmus measures 6 mm. Salivary glands: Submandibular glands are unremarkable. Lymph nodes: No cervical lymph node enlargement demonstrated. US/US thyroid [id number] IMPRESSION: Two TR 3 nodules in the left lobe measuring 2.7 cm. Fine-needle aspiration is indicated utilizing TI-RADS criteria.
== END 2025-05-12 23:59 | disposition home or self-care (01) ==
LOC: RAD 05-13 00:01 → ONCMED 05-17 09:09
PROVIDERS: PCP Nurse Practitioner Family; Visit Provider Internal Medicine Medical Oncology
DX: C50.919 Malignant neoplasm of unspecified site of unspecified female breast (principal); E55.9 Vitamin D deficiency, unspecified; E03.9 Hypothyroidism, unspecified; R91.1 Solitary pulmonary nodule
CPT/HCPCS: 76536; 77080